=== PATIENT | male | born 1955 | race Two or more races ===

== ENCOUNTER 2020-02-29 21:31 | Emergency (ER) | payer MEDICAID ==
[~2020-02-29] VITALS: Ht 154.9 cm; Wt 99.8 kg
--- NOTE | 2020-02-29 21:56 | NUR ---
ED Nurse Note: PT is from home, per his son today he drank 3-4 pints of whiskey and has issues with his memeory. Per the pts son, he has had difficulty breathing for the last 3 days. His SPO2 is 88% on RA. Placed on 4L NC and SPO2 is now 98%. Son is at bedside as pt has slurred speach and is a poor historian. Labs sent, at bedside. Tele monitor on pt.
[2020-02-29 22:05] VITALS: BP 150/90
[2020-02-29 22:05] LABS: BASOPHILS % (AUTO) 0.5 % (0.0-2.0); EOSINOPHILS % (AUTO) 0.1 % (0.0-3.0); HEMATOCRIT 47.7 % (42.0-52.0); HEMOGLOBIN 16.8 G/DL (14.2-18.0); LYMPHOCYTES % (AUTO) 18.1 % (20.0-45.0); MEAN CORPUSCULAR VOLUME 82 FL (80-99); NEUTROPHILS % (AUTO) 75.3 % (45.0-75.0); PLATELET COUNT 235 K/UL (150-450); RED BLOOD COUNT 5.79 M/UL (4.70-6.10); RED CELL DISTRIBUTION WIDTH 14.5 % (11.6-14.8); WHITE BLOOD COUNT 7.9 K/UL (4.8-10.8)
--- NOTE | 2020-02-29 22:10 | NUR ---
ED Nurse Note: Pt is incontinent. Placed condom cath for comfort.
[2020-02-29 22:24] LABS: ANION GAP 15 mmol/L (5-15); BLOOD UREA NITROGEN 38 mg/dL (7-18); CALCIUM 8.3 MG/DL (8.5-10.1); CARBON DIOXIDE 24 MMOL/L (21-32); CHLORIDE 100 MMOL/L (98-107); POTASSIUM 4.9 MMOL/L (3.5-5.1); SODIUM 139 MMOL/L (136-145)
[2020-02-29 22:30] LABS: ALANINE AMINOTRANSFERASE 70 U/L (12-78); ALBUMIN 3.4 G/DL (3.4-5.0); ALBUMIN/GLOBULIN RATIO 0.7 (1.0-2.7); ALKALINE PHOSPHATASE 119 U/L (46-116); ASPARTATE AMINO TRANSFERASE 76 U/L (15-37); BILIRUBIN,TOTAL 0.7 MG/DL (0.2-1.0)
[2020-02-29 22:38] LABS: APPEARANCE,URINE CLEAR; BILIRUBIN, URINE NEGATIVE (NEGATIVE); GLUCOSE, URINE (UA) NEGATIVE (NEGATIVE); KETONES,URINE 1+ (NEGATIVE); LEUKOCYTE ESTERASE ,URINE NEGATIVE (NEGATIVE); NITRITE,URINE NEGATIVE (NEGATIVE); PH,URINE 5 (4.5-8.0); PROTEIN,URINE 1+ (NEGATIVE); UROBILINOGEN,URINE NORMAL MG/DL (0.0-1.0)
[2020-02-29 22:47] LABS: COLOR,URINE YELLOW
--- NOTE | 2020-02-29 22:47 | Diagnostic Imaging Report ---
EXAM: XR Chest, 1 View CLINICAL HISTORY: SOB TECHNIQUE: Frontal view of the chest. COMPARISON: No relevant prior studies available. FINDINGS: Lungs: Low lung volumes with bronchovascular crowding. Retrocardiac atelectasis without or with consolidation. Pleural space: Unremarkable. No pneumothorax. Heart: Prominent cardiomediastinal silhouette likely at least in part to portable technique and low lung volumes. Mediastinum: See above. Bones/joints: No acute abnormality Other findings: If there is continued concern, consider two-view radiographs or CT. IMPRESSION: 1. Low lung volumes with bronchovascular crowding. 2. Retrocardiac atelectasis without or with consolidation. 3. Prominent cardiomediastinal silhouette likely at least in part to portable technique and low lung volumes. 4. If there is continued concern, consider two-view radiographs or CT.
[2020-02-29] MEDS ORDERED: Thiamine 100mg tab ORAL ONE (23:00)
--- NOTE | 2020-02-29 23:32 | NUR ---
ED Nurse Note: PT is breathing even and unlabored. Eyes are closed. Pt needs reorientation and re-education on nessesity of mask and nasal canula. SPO2 drops to 75% on RA when pt removed.
[2020-03-01 00:09] VITALS: BP 140/82
--- NOTE | 2020-03-01 01:02 | Emergency Room Report ---
History of Present Illness General Chief Complaint: Dyspnea/Respdistress Source: Patient Present Illness HPI 64-year-old male here with alcohol intoxication. Patient was brought to the emergency department by his son because "he drank a lot and now he does not recognize me." Patient son says that the patient has been drinking continuously for the past 3 days. The patient does drink alcohol every day. No history of alcohol withdrawal according to the patient's son. Patient son says that the patient "will drink alcohol because he is short of breath." He says that the patient began drinking alcohol tonight because "he felt like it makes it easier for him to breathe." The patient is clearly intoxicated but is awake and arousable and answering questions appropriately, albeit slowly. He denies any complaints at this time. Allergies: Coded Allergies: No Known Allergies (Unverified , 02/29/20) COVID-19 Screening Contact w/high risk pt: No Experienced COVID-19 symptoms?: Yes COVID-19 Testing performed METROPOLITAN EDITOR: No Nursing Documentation-[facility] Past Medical History: No History, Except For Review of Systems All Other Systems: negative except mentioned in HPI Physical Exam Vital Signs Date Time Temp Pulse Resp B/P (MAP) Pulse Ox O2 Delivery O2 Flow Rate FiO2 02/29/20 21:32 98.2 118 21 143/92 (109) 88 Room Air 02/29/20 22:05 4.0 Sp02 EP Interpretation: reviewed, normal General Appearance: no apparent distress, alert, non-toxic Head: normocephalic, atraumatic Eyes: bilateral eye normal inspection, bilateral eye PERRL ENT: hearing grossly normal, normal pharynx, no angioedema, normal voice Neck: full range of motion, supple/symm/no masses Respiratory: chest non-tender, lungs clear, normal breath sounds, speaking full sentences Cardiovascular #1: regular rate, rhythm, no edema Cardiovascular #2: 2+ carotid (R), 2+ carotid (L), 2+ radial (R), 2+ radial (L), 2+ dorsalis pedis (R), 2+ dorsalis pedis (L) Gastrointestinal: normal bowel sounds, non tender, soft, non-distended, no guarding, no rebound Rectal: deferred Genitourinary: normal inspection, no CVA tenderness Musculoskeletal: back normal, normal range of motion, gait/station normal, non- tender Neurologic: alert, motor strength/tone normal, oriented x3, sensory intact, responsive, speech normal Psychiatric: judgement/insight normal, memory normal, mood/affect normal, no suicidal/homicidal ideation, other - Slurred speech, intoxicated, but answering questions appropriately Lymphatic: no adenopathy Medical Decision Making Diagnostic Impression: Primary Impression: Alcohol intoxication ER Course Laboratory Tests Test 02/29/20 21:53 02/29/20 22:03 02/29/20 22:30 White Blood Count 7.9 K/UL (4.8-10.8) Red Blood Count 5.79 M/UL (4.70-6.10) Hemoglobin 16.8 G/DL (14.2-18.0) Hematocrit 47.7 % (42.0-52.0) Mean Corpuscular Volume 82 FL (80-99) Mean Corpuscular Hemoglobin 29.1 PG (27.0-31.0) Mean Corpuscular Hemoglobin Concent 35.3 G/DL (32.0-36.0) Red Cell Distribution Width 14.5 % (11.6-14.8) Platelet Count 235 K/UL (150-450) Mean Platelet Volume 6.1 FL (6.5-10.1) L Neutrophils (%) (Auto) 75.3 % (45.0-75.0) H Lymphocytes (%) (Auto) 18.1 % (20.0-45.0) L Monocytes (%) (Auto) 6.0 % (1.0-10.0) Eosinophils (%) (Auto) 0.1 % (0.0-3.0) Basophils (%) (Auto) 0.5 % (0.0-2.0) Urine Color Yellow Urine Appearance Clear Urine pH 5 (4.5-8.0) Urine Specific [place] 1.020 (1.005-1.035) Urine Protein 1+ (NEGATIVE) H Urine Glucose (UA) Negative (NEGATIVE) Urine Ketones 1+ (NEGATIVE) H Urine Blood 5+ (NEGATIVE) H Urine Nitrite Negative (NEGATIVE) Urine Bilirubin Negative (NEGATIVE) Urine Urobilinogen Normal MG/DL (0.0-1.0) Urine Leukocyte Esterase Negative (NEGATIVE) Urine RBC 15-20 /HPF (0 - 0) H Urine WBC 0-2 /HPF (0 - 0) Urine Squamous Epithelial Cells None /LPF (NONE/OCC) Urine Bacteria Few /HPF (NONE) Sodium Level 139 MMOL/L (136-145) Potassium Level 4.9 MMOL/L (3.5-5.1) Chloride Level 100 MMOL/L (98-107) Carbon Dioxide Level 24 MMOL/L (21-32) Anion Gap 15 mmol/L (5-15) Blood Urea Nitrogen 38 mg/dL (7-18) H Creatinine 1.0 MG/DL (0.55-1.30) Estimated Glomerular Filtration Rate > 60 mL/min (>60) Glucose Level 130 MG/DL (74-106) H Calcium Level 8.3 MG/DL (8.5-10.1) L Total Bilirubin 0.7 MG/DL (0.2-1.0) Aspartate Amino Transferase (AST) 76 U/L (15-37) H Alanine Aminotransferase (ALT) 70 U/L (12-78) Alkaline Phosphatase 119 U/L (46-116) H Troponin I 0.035 ng/mL (0.000-0.056) Total Protein 8.6 G/DL (6.4-8.2) H Albumin 3.4 G/DL (3.4-5.0) Globulin 5.2 g/dL Albumin/Globulin Ratio 0.7 (1.0-2.7) L Salicylates Level 1.2 ug/mL (2.8-20) L Urine Opiates Screen Negative (NEGATIVE) Acetaminophen Level < 2 MCG/ML (10-30) L Urine Barbiturates Screen Negative (NEGATIVE) Phencyclidine (PCP) Screen Negative (NEGATIVE) Urine Amphetamines Screen Negative (NEGATIVE) Urine Benzodiazepines Screen Negative (NEGATIVE) Urine Cocaine Screen Negative (NEGATIVE) Urine Marijuana (THC) Screen Negative (NEGATIVE) Serum Alcohol 433 mg/dL POC Whole Blood Glucose 123 MG/DL (74-106) H Ammonia 29 umol/L (11-32) Chest x-ray:IMPRESSION: 1. Low lung volumes with bronchovascular crowding. 2. Retrocardiac atelectasis without or with consolidation. 3. Prominent cardiomediastinal silhouette likely at least in part to portable technique and low lung volumes. 4. If there is continued concern, consider two-view radiographs or CT. EKG: Rate 116 bpm, sinus rhythm, no ischemia, intervals WNL. No ectopy Rhythm strip: patient monitored for arrhythmias - no malignant dysrhythmias, runs of PVCs, nor pauses noted 64-year-old male here with alcohol intoxication. The patient was brought in by his son who said "he drinks when he is short of breath." Patient however is denying any shortness of breath whatsoever and is awake and alert with normal vital signs in the emergency department. Not requiring any oxygen supplementation and not showing any evidence whatsoever of increased respiratory effort. CBC, CMP, troponin, EKG, chest x-ray all unremarkable. Patient had a highly elevated alcohol level of 433. He was given thiamine and folate in the emergency department. Patient will be discharged when clinically sober. Last Vital Signs Date Time Temp Pulse Resp B/P (MAP) Pulse Ox O2 Delivery O2 Flow Rate FiO2 03/01/20 00:09 98.8 118 18 140/82 99 Nasal Cannula 4.0 [facility]errals: [facility] Patient Instructions: Alcohol Intoxication, Shortness of Breath Mani Pelaez M.D. Mar 01, 2020 01:02
--- NOTE | 2020-03-01 02:32 | NUR ---
ED Nurse Note: Pt has eyes closed, breathing is even and unlabored. Vitals signs stable as documented.
[2020-03-01 02:33] VITALS: BP 135/78
[2020-03-01 04:32] VITALS: BP 138/84
--- NOTE | 2020-03-01 04:33 | NUR ---
ED Nurse Note: Pt has eyes closed, breathing is even and unlabored. Vitals signs stable as documented.
--- NOTE | 2020-03-01 05:37 | NUR ---
ED Nurse Note: Pt failed the gait test when Rn tried to have him stand. no new orders. Pt is drinking water.
[2020-03-01 06:24] VITALS: BP 175/102
--- NOTE | 2020-03-01 06:25 | NUR ---
ED Nurse Note: Pt had bm incontinence episode. Changed bedding.
--- NOTE | 2020-03-01 06:54 | NUR ---
ED Nurse Note: Pt had second bm incontinence episode. Changed bedding.
[2020-03-01 07:11] VITALS: BP 165/80
--- NOTE | 2020-03-01 07:13 | NUR ---
ER DISCHARGE NOTE: Patient is cleared to be discharged per ERMD, pt is aox4, on room air, with stable vital signs. pt was given dc instructions, pt was able to verbalize understanding, pt id band and iv site removed without complications. pt is able to ambulate with steady gait. Family member drove him home with a private vehicle. pt took all belongings.
== END 2020-03-01 07:16 | disposition home or self-care (01) ==
LOC: EMR 21:53
DX: F10.129 Alcohol abuse with intoxication, unspecified (principal); Y90.8 Blood alcohol level of 240 mg/100 ml or more
CPT/HCPCS: 36415; 71045; 80053; 80307; 81003; 82140; 82962; 84484; 85025; 93005; 96360; G0480; G0481; J7030; Z7502; 99284

== ENCOUNTER 2020-04-28 22:46 | Inpatient (IN) | payer MEDICAID ==
[~2020-04-28] VITALS: Ht 172.7 cm; Wt 84.8 kg
--- NOTE | 2020-04-28 23:00 | NUR ---
ED Nurse Note: Patient came to the ED with complaints of upper abdominal pain 10/10 after eating pork this afternoon. Patient also reports nausea. Denies vomiting blood. Hx of alcoholism.
[2020-04-29] VITALS (7 sets, daily range): BP systolic 143–178; BP diastolic 72–111
--- NOTE | 2020-04-29 00:25 | NUR ---
Patient left the unit for US, stable.
--- NOTE | 2020-04-29 00:27 | Emergency Room Report ---
History of Present Illness General Chief Complaint: Abdominal Pain Source: Patient Present Illness HPI 64-year-old male with past medical history of alcohol dependence presents to the emergency department with chief complaint of right upper quadrant abdominal pain that began this afternoon after eating pork grinds. Denies history of any similar symptoms. Patient also endorses nonbloody nonbilious vomiting, however he denies any fever, chills, diarrhea, melena, hematochezia, dysuria, flank pain, rash, headache, chest pain or any other symptoms. The patient's symptoms were gradual onset, severity was moderate, duration since 1 day. Quality: Aching, radiating to the epigastric region Past medical history: Alcohol dependence Past surgical history: Denies Smoking: Denies Alcohol use: ++ Drug use: Denies Review of systems: CONST: No fevers or chills, No night sweats PULMONARY: No productive cough, No shortness of breath CARDIAC: No chest pain, No palpitations GI: ++ vomiting, No diarrhea , No melena_or_BRBPR : No dysuria, No hematuria, No discharge NEURO: No new_focal_weakness_or_numbness, No confusion, No vision changes 14 point Review of Systems is otherwise negative except per HPI Physical Exam: GENERAL: Awake_alert_ nontoxic, no acute distress Spo2 98% on RA -normal EYES: Extraocular muscles are intact. Conjunctivae clear. Lids without swelling ENT: External nose and ear normal_in_appearance. Oropharynx clear. Head_atraumatic, Moist_oral_mucosa NECK: No JVD. No meningismus. No thyromegaly. Supple. Trachea midline RESP: Normal respiratory effort. Symmetric rise. No stridor. Clear_to_auscultation_No_rales_No_wheezes CARDIAC: Regular rate and regular rhytm. No_significant pedal edema. ABDOMEN: Soft. Nondistended. Right upper quadrant tenderness to palpation. Positive Patten sign._No_rebound_or_guarding. MSK: Normal muscle tone, without rigidity. Extremities without asymmetric deformity or swelling. SKIN: Warm and dry. No visible cyanosis or pallor no petechiae NEUROLOGIC: Alert, oriented x3. Motor_and_sensation_grossly_intact. No truncal ataxia. Gait_normal Psych: Normal mood and affect, normal judgment and insight - COORDINATION OF CARE Case was discussed with: Patient , Patient's Physician Any labs and imaging that were ordered were interpreted as part of the medical decision making: Medical Decision Making/Plan: Differential diagnosis includes cholecystitis, choledocholithiasis, hepatitis, small bowel obstruction, volvulus, AAA, pancreatitis, atypical appendicitis, gastroparesis, gastritis, peptic ulcer disease, among others. Patient is well appearing with stable vital signs. Abdominal examination showed positive Patten sign and right upper quadrant tenderness to palpation without rebound Labs show transaminitis, likely obstructive biliary pattern. EKG shows normal sinus rhythm. LVH. No acute ischemia. Right upper quadrant ultrasound was performed and demonstrates cholelithiasis with gallbladder wall thickening of 5 mm with positive sonographic Patten sign, suspicious for acute cholecystitis. Furthermore, the common bile duct is mildly dilated requiring an MRCP to evaluate for choledocholithiasis. The patients symptoms are not consistent with ACS (acute coronary syndrome), symptoms are not exertional, EKG without obvious ischemic change. ED intervention included fluids, broad-spectrum antibiotic, and pain control. Patient has persistent pain in the right upper quadrant. Will admit for acute cholecystitis. The patient denies any bloody stool and has no pain out of proportion to exam, a nd no significant risk factors for mesenteric ischemia such as atrial fibrillation or severe PAD/PVD (peripheral arterial / vascular disease), thus definitive workup to rule out mesenteric ischemia was not pursued. Patient is afebrile, without any significant tenderness in the RUQ, and a negative Lincoln sign. The patients presentation does not appear to be consistent with acute cholecystitis and thus definitive imaging to rule it out was not pursued. The patient has no significant risk factors for AAA (abdominal aortic aneurysm) such as age over 50 with history of hypertension, connective tissue disorder, or 1st degree relative with AAA. the patient has normal dorsalis pedis pulses, no radiation of pain to the back, and no pulsatile mass felt on exam. The patients profile was overall low risk for AAA and definitive workup was not pursued. I spoke with Dr. Casarez, and reviewed the patients presentation, workup, results, and treatment. They will admit the patient for further care and evaluation, and assume care of the patient at this time. Allergies: Coded Allergies: No Known Allergies (Unverified , 02/29/20) COVID-19 Screening Contact w/high risk pt: No Experienced COVID-19 symptoms?: No COVID-19 Testing performed PORTFOLIO MANAGER: No Physical Exam Vital Signs Date Time Temp Pulse Resp B/P (MAP) Pulse Ox O2 Delivery O2 Flow Rate FiO2 04/28/20 23:21 98.2 79 22 185/98 (127) 98 Room Air Sp02 EP Interpretation: reviewed, normal Medical Decision Making Diagnostic Impression: Primary Impression: Abdominal pain Additional Impressions: Cholelithiasis Acute cholecystitis EKG Diagnostic Results Troponin ordered: No JUNI Valerioibbora Text 12-lead EKG (interpreted by me) Time: 2348 Indication: Rhythm analysis Tracing visualized and Interpreted by me. Rhythm: Normal sinus rhythm Rate: 69 bpm QTc: 443 Morphology: No_significant_ST_elevations_or_depressions, No STEMI Impression: Normal sinus rhythm, left ventricular hypertrophy, T wave inversion in lead V5 and V6 Rhythm Strip Diag. Results Rhythm Strip Time: 02:04 EP Interpretation: yes Rate: 89 Rhythm: NSR, no PVC's, no ectopy CT/MRI/US Diagnostic Results CT/MRI/US Diagnostic Results : Impression US Abdomen Complete FINDINGS: Liver: The liver measures 16.0 cm in craniocaudal dimension. No intrahepatic bile duct dilation. Gallbladder: Gallbladder wall thickness is 4.8 cm. Positive sonographic Patten sign. Gallstones are present. Common bile duct: The common bile duct measures 8.6 mm in diameter. No stones. No dilation. Pancreas: Unremarkable as visualized. Kidneys: The right kidney measures 14.0 x 6.2 x 4.0 cm. The left kidney measures 10.9 x 7.4 x 4.6 cm. 11 cm cyst arising from the right kidney. No follow-up imaging is necessary. No stones. No hydronephrosis. Spleen: Unremarkable. No splenomegaly. Aorta: Unremarkable. No aneurysm. Inferior vena cava: Unremarkable. IMPRESSION: 1. Cholelithiasis with gallbladder wall thickening of 4-5 mm with a positive sonographic Patten sign. This constellation of findings could be seen in the clinical setting of acute cholecystitis. 2. The common bile duct is mildly dilated. An MRCP could be performed to evaluate for obstructing CBD stone if clinically indicated. Dictated By: Fidelia Carty M.D Reevaluation Time: 02:04 Last Vital Signs Date Time Temp Pulse Resp B/P (MAP) Pulse Ox O2 Delivery O2 Flow Rate FiO2 04/28/20 23:21 98.2 79 22 185/98 (127) 98 Room Air Status: improved Disposition: ADMITTED INPATIENT Admit Decision Time: 02:04 Condition: Stable Referrals: NOT CHOSEN PEYTON/,REFERRING (PCP) Chata Reese D.O. Apr 29, 2020 00:26
[2020-04-29 00:33] LABS: EOSINOPHILS % (AUTO) 1.2 % (0.0-3.0); HEMATOCRIT 44.6 % (42.0-52.0); HEMOGLOBIN 14.7 G/DL (14.2-18.0); LYMPHOCYTES % (AUTO) 13.8 % (20.0-45.0); MEAN CORPUSCULAR VOLUME 88 FL (80-99); MONOCYTES % (AUTO) 7.7 % (1.0-10.0); NEUTROPHILS % (AUTO) 76.3 % (45.0-75.0); PLATELET COUNT 221 K/UL (150-450); RED BLOOD COUNT 5.06 M/UL (4.70-6.10); RED CELL DISTRIBUTION WIDTH 14.5 % (11.6-14.8)
[2020-04-29 00:34] LABS: APPEARANCE,URINE CLEAR; BILIRUBIN, URINE NEGATIVE (NEGATIVE); GLUCOSE, URINE (UA) NEGATIVE (NEGATIVE); KETONES,URINE 3+ (NEGATIVE); LEUKOCYTE ESTERASE ,URINE NEGATIVE (NEGATIVE); NITRITE,URINE NEGATIVE (NEGATIVE); PH,URINE 8 (4.5-8.0); PROTEIN,URINE NEGATIVE (NEGATIVE); UROBILINOGEN,URINE NORMAL MG/DL (0.0-1.0)
[2020-04-29 00:39] LABS: COLOR,URINE YELLOW
[2020-04-29 00:47] LABS: ANION GAP 9 mmol/L (5-15); BLOOD UREA NITROGEN 15 mg/dL (7-18); CALCIUM 9.4 MG/DL (8.5-10.1); CARBON DIOXIDE 29 MMOL/L (21-32); CHLORIDE 102 MMOL/L (98-107); CREATININE 0.8 MG/DL (0.55-1.30); POTASSIUM 3.6 MMOL/L (3.5-5.1); SODIUM 140 MMOL/L (136-145)
[2020-04-29 00:58] LABS: ALANINE AMINOTRANSFERASE 47 U/L (12-78); ALBUMIN 3.6 G/DL (3.4-5.0); ALBUMIN/GLOBULIN RATIO 0.8 (1.0-2.7); ALKALINE PHOSPHATASE 117 U/L (46-116); ASPARTATE AMINO TRANSFERASE 57 U/L (15-37); BILIRUBIN,TOTAL 2.6 MG/DL (0.2-1.0)
[2020-04-29 00:59] LABS: BILIRUBIN,DIRECT 1.3 MG/DL (0.0-0.3)
--- NOTE | 2020-04-29 01:00 | NUR ---
Patient return to unit from US.
--- NOTE | 2020-04-29 01:13 | Diagnostic Imaging Report ---
EXAM: US Abdomen Complete CLINICAL HISTORY: PAIN TECHNIQUE: Real-time ultrasound of the abdomen with image documentation. COMPARISON: No relevant prior studies available. FINDINGS: Liver: The liver measures 16.0 cm in craniocaudal dimension. No intrahepatic bile duct dilation. Gallbladder: Gallbladder wall thickness is 4.8 cm. Positive sonographic Patten sign. Gallstones are present. Common bile duct: The common bile duct measures 8.6 mm in diameter. No stones. No dilation. Pancreas: Unremarkable as visualized. Kidneys: The right kidney measures 14.0 x 6.2 x 4.0 cm. The left kidney measures 10.9 x 7.4 x 4.6 cm. 11 cm cyst arising from the right kidney. No follow-up imaging is necessary. No stones. No hydronephrosis. Spleen: Unremarkable. No splenomegaly. Aorta: Unremarkable. No aneurysm. Inferior vena cava: Unremarkable. IMPRESSION: 1. Cholelithiasis with gallbladder wall thickening of 4-5 mm with a positive sonographic Patten sign. This constellation of findings could be seen in the clinical setting of acute cholecystitis. 2. The common bile duct is mildly dilated. An MRCP could be performed to evaluate for obstructing CBD stone if clinically indicated.
[2020-04-29] MEDS ORDERED: Piperacillin/Tazobactam 3.375 GM in NS 110 ML IVPB ONE (01:15)
[2020-04-29] MEDS ORDERED: Morphine Sulfate 4mg/ml Inj (IV USE ONLY) ONE (02:54)
[2020-04-29] MEDS ORDERED: Morphine Sulfate 4mg/ml Inj (IV USE ONLY) IVP ONE ×3 (03:00→05:00)
--- NOTE | 2020-04-29 06:51 | NUR ---
Patient is resting in bed with eyes closed, calm and comfortable. BP 176/98, HR 84, 100% on room air.
--- NOTE | 2020-04-29 07:45 | NUR ---
ED Nurse Note: attempted to give report, was informed beds not ready and RN not at nurses station.
--- NOTE | 2020-04-29 08:16 | NUR ---
ED Nurse Note: attempted to call report again, on hold 12mins. attempted to call again and no answer.
--- NOTE | 2020-04-29 08:21 | NUR ---
ED Nurse Note: gave report to FRANCHESCA Higgins
--- NOTE | 2020-04-29 08:25 | NUR ---
NURSE NOTES Received patient in bed,patient awake,alert,oriented x4, no sign of distress, HL patent on right AC,Denies pain or discomfort at this time,repositioned patient for comfort and good circulation,admission routine care done, repositioned patient for comfort and good circulation,v/s taken and recorded kept clean dry and comfortable in bed,will notify PMD for admission orders,on fall precaution instructed patient to callfor assistance when in need moriah hendrickson
--- NOTE | 2020-04-29 10:28 | Consultation ---
History of Present Illness General Date patient seen: Apr 29, 2020 Reason for Hospitalization: Abdominal Pain Present Illness HPI 64-year-old male with past medical history of alcohol dependence presents to the emergency department with chief complaint of right upper quadrant abdominal pain that began afternoon prior to admission after eating pork grinds. Denies history of any similar symptoms. Patient also endorses nonbloody nonbilious vomiting, however he denies any fever, chills, diarrhea, melena, hematochezia, dysuria, flank pain, rash, headache, chest pain or any other symptoms. The patient's symptoms were gradual onset, severity was moderate, duration since 1 day. Leukocytosis abnormal labs acute cholecystitis admitted further care and management ultrasound noted surgery called to evaluate assist with care patient seen patient evaluate chart reviewed states 4 out of 10 right upper quad abdominal pain currently no nausea vomiting fever chills. Allergies: Coded Allergies: No Known Allergies (Unverified , 02/29/20) COVID-19 Screening Contact w/high risk pt: No Experienced COVID-19 symptoms?: No Patient History History Provided By: Patient Healthcare decision maker Resuscitation status Advanced Directive on File Past Medical/Surgical History Past Medical/Surgical History: (1) Alcohol intoxication (2) Cholelithiasis (3) Abdominal pain (4) Acute cholecystitis Review of Systems Review of Symptoms General ROS: no weight loss or fever Psychological ROS: no depression or mood changes, no memory loss Ophthalmic ROS: no visual changes or eye irritation ENT ROS: no nasal congestion, hearing loss, dizziness Allergy and Immunology ROS: no allergic symptoms or urticaria Hematological and Lymphatic ROS: no swollen glands, unusual bleeding or bruising Endocrine ROS: no polyuria, polydipsia, weight changes, temperature intolerance Respiratory ROS: no cough, shortness of breath, or wheezing Cardiovascular ROS: no chest pain or dyspnea on exertion Gastrointestinal ROS: + abdominal pain, bright red blood in stool. Musculoskeletal ROS: no myalgias or arthralgias Neurological ROS: no TIA or stroke symptoms Dermatological ROS: no new or changing skin lesions, rashes or pruritis Physical Exam Physical Exam General appearance: alert, cooperative, no distress, appears stated age Head: Normocephalic, without obvious abnormality, atraumatic Eyes: conjunctivae/corneas clear. PERRL, EOM's intact. Fundi benign Throat: Lips, mucosa, and tongue normal. Teeth and gums normal Neck: supple, symmetrical, trachea midline, no adenopathy, thyroid: not enlarged, symmetric, no tenderness/mass/nodules, no carotid bruit and no JVD Lungs: clear to auscultation bilaterally Heart: regular rate and rhythm, S1, S2 normal, no murmur, click, rub or gallop Abdomen: soft, RUQ-tender. Bowel sounds normal. No masses, no organomegaly Extremities: extremities normal, atraumatic, no cyanosis or edema Pulses: 2+ and symmetric Skin: Skin color, texture, turgor normal. No rashes or lesions Neurologic: Grossly normal Last 24 Hour Vital Signs Date Time Temp Pulse Resp B/P (MAP) Pulse Ox O2 Delivery O2 Flow Rate FiO2 04/29/20 09:42 Room Air 04/29/20 09:33 178/111 04/29/20 08:41 Room Air 04/29/20 08:30 98.1 85 18 178/111 (133) 95 04/29/20 06:50 98.2 16 176/98 100 Room Air 04/29/20 01:49 98.2 18 162/100 99 Room Air 04/29/20 01:04 79 22 Room Air 04/28/20 23:21 98.2 79 22 185/98 (127) 98 Room Air Intake and Output 04/28/20 04/29/20 18:59 06:59 Intake Total 100 ml Balance 100 ml Intake Oral 100 ml # Voids 2 Laboratory Tests Test 04/28/20 23:55 White Blood Count 7.0 K/UL (4.8-10.8) Red Blood Count 5.06 M/UL (4.70-6.10) Hemoglobin 14.7 G/DL (14.2-18.0) Hematocrit 44.6 % (42.0-52.0) Mean Corpuscular Volume 88 FL (80-99) Mean Corpuscular Hemoglobin 29.0 PG (27.0-31.0) Mean Corpuscular Hemoglobin Concent 32.9 G/DL (32.0-36.0) Red Cell Distribution Width 14.5 % (11.6-14.8) Platelet Count 221 K/UL (150-450) Mean Platelet Volume 6.3 FL (6.5-10.1) L Neutrophils (%) (Auto) 76.3 % (45.0-75.0) H Lymphocytes (%) (Auto) 13.8 % (20.0-45.0) L Monocytes (%) (Auto) 7.7 % (1.0-10.0) Eosinophils (%) (Auto) 1.2 % (0.0-3.0) Basophils (%) (Auto) 1.0 % (0.0-2.0) Urine Color Yellow Urine Appearance Clear Urine pH 8 (4.5-8.0) Urine Specific [place] 1.015 (1.005-1.035) Urine Protein Negative (NEGATIVE) Urine Glucose (UA) Negative (NEGATIVE) Urine Ketones 3+ (NEGATIVE) H Urine Blood Negative (NEGATIVE) Urine Nitrite Negative (NEGATIVE) Urine Bilirubin Negative (NEGATIVE) Urine Urobilinogen Normal MG/DL (0.0-1.0) Urine Leukocyte Esterase Negative (NEGATIVE) Sodium Level 140 MMOL/L (136-145) Potassium Level 3.6 MMOL/L (3.5-5.1) Chloride Level 102 MMOL/L (98-107) Carbon Dioxide Level 29 MMOL/L (21-32) Anion Gap 9 mmol/L (5-15) Blood Urea Nitrogen 15 mg/dL (7-18) Creatinine 0.8 MG/DL (0.55-1.30) Estimat Glomerular Filtration Rate > 60 mL/min (>60) Glucose Level 129 MG/DL (74-106) H Calcium Level 9.4 MG/DL (8.5-10.1) Total Bilirubin 2.6 MG/DL (0.2-1.0) H Direct Bilirubin 1.3 MG/DL (0.0-0.3) H Aspartate Amino Transf (AST/SGOT) 57 U/L (15-37) H Alanine Aminotransferase (ALT/SGPT) 47 U/L (12-78) Alkaline Phosphatase 117 U/L (46-116) H Total Protein 8.0 G/DL (6.4-8.2) Albumin 3.6 G/DL (3.4-5.0) Globulin 4.4 g/dL Albumin/Globulin Ratio 0.8 (1.0-2.7) L Lipase 176 U/L (73-393) Height (Feet): 5 Height (Inches): 8.00 Weight (Pounds): 187 Medications Current Medications Medications (Trade) Dose Ordered Sig/Nishant Route PRN Reason Start Time Stop Time Status Last Admin Dose Admin Clonidine HCl (Catapres Tab) 0.1 mg Q4H PRN ORAL SBP>160mmHg 04/29/20 09:30 07/28/20 09:29 04/29/20 09:33 Assessment/Plan Problem List: (1) Cholelithiasis ICD Codes: K80.20 - Calculus of gallbladder without cholecystitis without obstruction SNOMED: 593749499 (2) Abdominal pain ICD Codes: R10.9 - Unspecified abdominal pain SNOMED: 47551477 (3) Acute cholecystitis Assessment & Plan: 64-year-old male with acute cholecystitis. Afebrile hemodynamic stable labs noted leukocytosis elevated direct and indirect bilirubin. Potential choledocholithiasis. Ultrasound noted. N.p.o. iv fluids MRCP eval for cbd stone iv abx trend labs gi eval for ercp may need cholecystectomy will monitor clinically and follow with recs as results available will follow with recs thank you Liver: The liver measures 16.0 cm in craniocaudal dimension. No intrahepatic bile duct dilation. Gallbladder: Gallbladder wall thickness is 4.8 cm. Positive sonographic Patten sign. Gallstones are present. Common bile duct: The common bile duct measures 8.6 mm in diameter. No stones. No dilation. Pancreas: Unremarkable as visualized. Kidneys: The right kidney measures 14.0 x 6.2 x 4.0 cm. The left kidney measures 10.9 x 7.4 x 4.6 cm. 11 cm cyst arising from the right kidney. No follow-up imaging is necessary. No stones. No hydronephrosis. Spleen: Unremarkable. No splenomegaly. Aorta: Unremarkable. No aneurysm. Inferior vena cava: Unremarkable. IMPRESSION: 1. Cholelithiasis with gallbladder wall thickening of 4-5 mm with a positive sonographic Patten sign. This constellation of findings could be seen in the clinical setting of acute cholecystitis. 2. The common bile duct is mildly dilated. An MRCP could be performed to evaluate for obstructing CBD stone if clinically indicated. ICD Codes: K81.0 - Acute cholecystitis SNOMED: 61498975 (4) Alcohol intoxication ICD Codes: F10.929 - Alcohol use, unspecified with intoxication, unspecified SNOMED: 46048121 Venkatesh Hall Apr 29, 2020 10:27
[2020-04-29] MEDS ORDERED: Morphine Sulfate 2mg/ml Inj(IV/IM USE ONLY) IVP PRN (10:30)
[2020-04-29] MEDS ORDERED: LORazepam 1mg tab ORAL PRN (10:30)
[2020-04-29] MEDS ORDERED: Mylanta II UD 30ml ORAL PRN (10:30)
--- NOTE | 2020-04-29 10:48 | History & Physical ---
History of Present Illness General Reason for Hospitalization: Abdominal Pain Present Illness HPI 64-year-old male with past medical history of alcohol dependence presents to the emergency department with chief complaint of right upper quadrant abdominal pain that began afternoon prior to admission after eating pork grinds. Denies history of any similar symptoms. Patient also endorses nonbloody nonbilious vomiting, however he denies any fever, chills, diarrhea, melena, hematochezia, dysuria, flank pain, rash, headache, chest pain or any other symptoms. The patient's symptoms were gradual onset, severity was moderate, duration since 1 day. Leukocytosis abnormal labs acute cholecystitis admitted further care and management Allergies: Coded Allergies: No Known Allergies (Unverified , 02/29/20) COVID-19 Screening Contact w/high risk pt: No Experienced COVID-19 symptoms?: No Patient History Healthcare decision maker Resuscitation status Advanced Directive on File Review of Systems Review of Symptoms General ROS: no weight loss or fever Psychological ROS: no depression or mood changes, no memory loss Ophthalmic ROS: no visual changes or eye irritation ENT ROS: no nasal congestion, hearing loss, dizziness Allergy and Immunology ROS: no allergic symptoms or urticaria Hematological and Lymphatic ROS: no swollen glands, unusual bleeding or bruising Endocrine ROS: no polyuria, polydipsia, weight changes, temperature intolerance Respiratory ROS: no cough, shortness of breath, or wheezing Cardiovascular ROS: no chest pain or dyspnea on exertion Gastrointestinal ROS: + abd pain Musculoskeletal ROS: no myalgias or arthralgias Neurological ROS: no TIA or stroke symptoms Dermatological ROS: no new or changing skin lesions, rashes or pruritis Physical Exam Physical Exam General appearance: alert, cooperative, no distress, appears stated age Head: Normocephalic, without obvious abnormality, atraumatic Eyes: conjunctivae/corneas clear. PERRL, EOM's intact. Fundi benign Throat: Lips, mucosa, and tongue normal. Teeth and gums normal Neck: supple, symmetrical, trachea midline, no adenopathy, thyroid: not enlarged, symmetric, no tenderness/mass/nodules, no carotid bruit and no JVD Lungs: clear to auscultation bilaterally Heart: regular rate and rhythm, S1, S2 normal, no murmur, click, rub or gallop Abdomen: soft, non-tender. Bowel sounds normal. No masses, no organomegaly Extremities: extremities normal, atraumatic, no cyanosis or edema Pulses: 2+ and symmetric Skin: Skin color, texture, turgor normal. No rashes or lesions Neurologic: Grossly normal Last 24 Hour Vital Signs Date Time Temp Pulse Resp B/P (MAP) Pulse Ox O2 Delivery O2 Flow Rate FiO2 04/29/20 09:42 Room Air 04/29/20 09:33 178/111 04/29/20 08:41 Room Air 04/29/20 08:30 98.1 85 18 178/111 (133) 95 04/29/20 06:50 98.2 16 176/98 100 Room Air 04/29/20 01:49 98.2 18 162/100 99 Room Air 04/29/20 01:04 79 22 Room Air 04/28/20 23:21 98.2 79 22 185/98 (127) 98 Room Air Intake and Output 04/28/20 04/29/20 19:00 07:00 Intake Total 100 ml Balance 100 ml Intake Oral 100 ml # Voids 2 Laboratory Tests Test 04/28/20 23:55 White Blood Count 7.0 K/UL (4.8-10.8) Red Blood Count 5.06 M/UL (4.70-6.10) Hemoglobin 14.7 G/DL (14.2-18.0) Hematocrit 44.6 % (42.0-52.0) Mean Corpuscular Volume 88 FL (80-99) Mean Corpuscular Hemoglobin 29.0 PG (27.0-31.0) Mean Corpuscular Hemoglobin Concent 32.9 G/DL (32.0-36.0) Red Cell Distribution Width 14.5 % (11.6-14.8) Platelet Count 221 K/UL (150-450) Mean Platelet Volume 6.3 FL (6.5-10.1) L Neutrophils (%) (Auto) 76.3 % (45.0-75.0) H Lymphocytes (%) (Auto) 13.8 % (20.0-45.0) L Monocytes (%) (Auto) 7.7 % (1.0-10.0) Eosinophils (%) (Auto) 1.2 % (0.0-3.0) Basophils (%) (Auto) 1.0 % (0.0-2.0) Urine Color Yellow Urine Appearance Clear Urine pH 8 (4.5-8.0) Urine Specific [place] 1.015 (1.005-1.035) Urine Protein Negative (NEGATIVE) Urine Glucose (UA) Negative (NEGATIVE) Urine Ketones 3+ (NEGATIVE) H Urine Blood Negative (NEGATIVE) Urine Nitrite Negative (NEGATIVE) Urine Bilirubin Negative (NEGATIVE) Urine Urobilinogen Normal MG/DL (0.0-1.0) Urine Leukocyte Esterase Negative (NEGATIVE) Sodium Level 140 MMOL/L (136-145) Potassium Level 3.6 MMOL/L (3.5-5.1) Chloride Level 102 MMOL/L (98-107) Carbon Dioxide Level 29 MMOL/L (21-32) Anion Gap 9 mmol/L (5-15) Blood Urea Nitrogen 15 mg/dL (7-18) Creatinine 0.8 MG/DL (0.55-1.30) Estimat Glomerular Filtration Rate > 60 mL/min (>60) Glucose Level 129 MG/DL (74-106) H Calcium Level 9.4 MG/DL (8.5-10.1) Total Bilirubin 2.6 MG/DL (0.2-1.0) H Direct Bilirubin 1.3 MG/DL (0.0-0.3) H Aspartate Amino Transf (AST/SGOT) 57 U/L (15-37) H Alanine Aminotransferase (ALT/SGPT) 47 U/L (12-78) Alkaline Phosphatase 117 U/L (46-116) H Total Protein 8.0 G/DL (6.4-8.2) Albumin 3.6 G/DL (3.4-5.0) Globulin 4.4 g/dL Albumin/Globulin Ratio 0.8 (1.0-2.7) L Lipase 176 U/L (73-393) Height (Feet): 5 Height (Inches): 8.00 Weight (Pounds): 187 Medications Current Medications Medications (Trade) Dose Ordered Sig/Nishant Route PRN Reason Start Time Stop Time Status Last Admin Dose Admin Acetaminophen (Tylenol) 650 mg Q4H PRN ORAL Temp >100.5 04/29/20 10:30 05/29/20 10:29 Al Hydroxide/Mg Hydroxide (Mylanta II) 30 ml Q6H PRN ORAL dyspepsia 04/29/20 10:30 05/29/20 10:29 Clonidine HCl (Catapres Tab) 0.1 mg Q4H PRN ORAL SBP>160mmHg 04/29/20 09:30 07/28/20 09:29 04/29/20 09:33 Dextrose (Dextrose 50%) 25 ml Q30M PRN IV Hypoglycemia 04/29/20 10:30 07/28/20 10:29 Dextrose (Dextrose 50%) 50 ml Q30M PRN IV Hypoglycemia 04/29/20 10:30 07/28/20 10:29 Dextrose/ Electrolytes 1,000 ml @ 75 mls/hr [id number] IV 04/29/20 11:30 05/29/20 11:29 Diphenhydramine HCl (Benadryl) 25 mg Q6H PRN ORAL Itching/Pruritis 04/29/20 10:30 05/29/20 10:29 Famotidine (Pepcid I.v.) 20 mg Q12HR IVP 04/29/20 21:00 05/29/20 20:59 Lorazepam (Ativan) 1 mg Q4H PRN ORAL For Anxiety 04/29/20 10:30 05/06/20 10:29 Morphine Sulfate (Morphine Sulfate) 2 mg Q3H PRN IVP Moderate Pain (Pain Scale 4-6) 04/29/20 10:30 05/06/20 10:29 Multivitamins (Multivitamins) 1 tab DAILY ORAL 04/30/20 09:00 05/30/20 08:59 Ondansetron HCl (Zofran) 4 mg Q6H PRN IVP Nausea & Vomiting 04/29/20 10:30 05/29/20 10:29 Piperacillin Sod/ Tazobactam Sod 3.375 gm/Sodium Chloride 110 ml @ 27.5 mls/hr EVERY 8 HOURS IVPB 04/29/20 14:00 05/04/20 13:59 Temazepam (Restoril) 15 mg HSPRN PRN ORAL Insomnia 04/29/20 21:00 05/06/20 20:59 Assessment/Plan Diagnosis [place] I: #acute abd pain #nausea, emesis #acute viridiana? - admit inpatient - IV abx- vanco - zosyn - [facility] - IVF - Gi eval - general surger - antiemetics - pain control [facility] Hospital declaration INPATIENT level of care is warranted for this patient because patient is a 89 year old with who presents with suspicion of . I have a high level of concern because . Patient is at high risk for . Plan of care/treatment include . Patient care is expected to be greater than 2 midnights. OBSERVATION level of care is warranted for this patient. Patient is a 89 year old with who presents with . Patient will be admitted for 1 midnight, but if additional night(s) is/are necessary, patient will be converted to inpatient status for the entire hospitalization Disposition: Once the patient is stable to leave the hospital, I anticipate the patient will likely be discharged to the following environment: Estimated discharge date: I spent 70 minutes on this patient's case, and minutes was dedicated to counseling and/or care coordination. MIPS (Merit-based Incentive Payment System) Applicable CPT: 17055, 48894 CHECK ALL THAT ARE MET: Measure #5 (CHF): All ages. Prescribe MELE/ARB upon discharge for patients with left ventricular systolic dysfunction. If not, the reason is clearly documented in the medical chart. Measure #8 (CHF): All ages. Prescribe a beta reece upon discharge for patients with left ventricular systolic dysfunction. If not, the reason is clearly documented in the medical chart. Measure #47 Advance care plan or surrogate decision maker documented in the medical record. Measure #130 The provider has documented, updated, or reviewed the patients current medication list and has documented it in the patients note. Measure #374 (All): Send report to referring provider. Measure #407(Sepsis due to MSSA bacteremia): Age 18+ Patient treated with a beta-lactam antibiotic (Nafcillin, Oxacillin or Cefazolin) as definitive therapy. MEDICAL COMPLEXITY High complexity medical decision making (need 2/3 categories) Problem - need 4 points Acute/new problem with new plan for workup (4 points, 1 max) Acute/new problem without additional workup (3 points, 1 max) Unstable chronic problem actively being managed (2 point each, 2 max) Stable chronic problem actively being managed (1 point each, 2 max) Self-limited/transient process (constipation, muscle ache, etc) (1 point each, 2 max) Data - need 4 points Reviewed labs/imaging studies (1 points, 2 max) Independent review of imaging (EKG, xrays, etc) (2 points, 2 max) Discussed case with consult/other MD/RN (2 points, 2 max) High Risk - qualify if have one of the following: Severe exacerbation of acute problem, acute mental status change, IV narcotics, monitoring drug levels (vancomycin, INR, tacrolimus etc) Kellee Toledo M.D. Apr 29, 2020 10:48
[2020-04-29] MEDS: D5 1/2NS w/KCl 20mEq 1,000 ML IV SCH (11:21)
[2020-04-29] MEDS: Piperacillin/Tazobactam 3.375 GM in NS 110 ML IVPB SCH ×2 (13:11→22:07)
--- NOTE | 2020-04-29 13:14 | NUR ---
CASE MANAGEMENT:REVIEW 64 YR OLD MALE WALKED INTO ER CC: ABD PAIN AFTER EATING PORK. VOMITING SI: ACUTE CHOLECYSTITIS. CHOLELITHIASIS 98.3 79 22 185/98 98% ON RA GLUCOSE+129 TBILI+2.6 DBILI+1.3 IS: IV ZOFRAN 1L NS BOLUS X2 IV MORPHINE IV ZOSYN ABD US MRI ABD : TO MED/SURG UNIT DCP: FROM HOME
--- NOTE | 2020-04-29 15:00 | Diagnostic Imaging Report ---
Indication: Abdominal pain, gallstones seen on recent sonography Technique: Coronal and axial single shot fast spin-echo breath-hold, axial T2 FRFSE, 2-D thick slab MRCP, AXIAL 2-D FIESTA fat saturated, axial 3-D dual echo breath-hold, water weighted axial LAVA FLEX, revealed 3-D MRCP images were obtained of the abdomen. MIP reconstructions were generated of the bile ducts on an integrated workstation Comparison: No comparison MRI. Reference made to sonogram of earlier the same day Findings: There is considerable image degradation due to respiratory motion artifact. A few small filling defects are seen in the gallbladder on a few sequences. The common bile duct and common hepatic duct are dilated, measuring up to 11 mm in diameter. However, no obstructing stone or obstructing mass is demonstrated. The patella appears to protrude into the duodenal lumen on the axial T2 fat saturated images. There is very mild edema of the gallbladder wall which is somewhat focal around the fundus. There is mild central intrahepatic biliary ductal dilatation. No intrahepatic ductal filling defects are demonstrated. The pancreatic duct is normal in caliber. There is edema surrounding the pancreatic head and body and extending into the bryce hepatis as well as surrounding the second portion of the duodenum. The liver, spleen, adrenals, left kidney are unremarkable. A large cyst arises from the upper pole of the right kidney. No pelvic mass or adenopathy. Impression: Cholelithiasis. Minimal if any gallbladder wall thickening Dilated extrahepatic bile ducts, 11 mm in diameter. No evidence of choledocholithiasis or definite downstream obstructive lesion demonstrated. Edema surrounding the pancreatic head and body. This is suspicious for acute pancreatitis. Unremarkable pancreatic duct Incidental finding of large right renal cyst, also described on prior sonogram
--- NOTE | 2020-04-29 19:30 | NUR ---
NURSE HAND-OFF: Important Events on Shift:[MRCP done] Patient Status: [on going] Diet: [NPO] Pending Orders: [LABS in am] Pending Results/Labs:[none] Pending MD notification:[none] Latest Vital Signs: Temperature 99.2 , Pulse 89 , B/P 149 /72 , Respiratory Rate 18 , O2 SAT 97 , Room Air, O2 Flow Rate . Vital Sign Comment: [stable] Latest Lynn Fall Score: 25 Fall Risk: Medium Risk Safety Measures: Call light Within Reach, Bed Alarm Zone 2, Side Rails Side Rails x2, Bed position Low and Locked. Fall Precautions: Patient Fall Education Report given to [TAMELA Cruz].
--- NOTE | 2020-04-29 20:00 | NUR ---
NURSE NOTES: RECEIVED PATIENT LYING IN BED, AWAKE, ALERT/ORIENTED X4, MONGOLIAN SPEAKING, HEAD OF BED ELEVATED, NO SIGNS AND SYMPTOMS OF ACUTE CARDIO RESPIRATORY DISTRESS/SHORTNESS OF BREATH, DENIES CHEST PAIN, NO EDEMA NOTED. IV INTACT/PATENT, TOLERATING IV FLUIDS, NO REDNESS/SWELLING NOTED TO RIGHT AC/GAUGE 20. ABDOMEN SOFT/NON TENDER/AUDIBLE BOWEL SOUNDS IN ALL QUADRANTS, PATIENT NPO/ACUTE CHOLECYSTITIS, DENIES ABDOMINAL PAIN, ASSISTED TO BATHROOM, NOTED WITH UNSTEADY GAIT, RETURNED TO BED SAFELY, SIDE RAILS UP X3/BED IN LOWEST POSITION FOR SAFETY, ENCOURAGED PATIENT TO CONTINUE TO CALL FOR ASSISTANCE, VERBALIZED UNDERSTANDING. CONTINUE WITH CURRENT PLAN OF CARE. NAD.
[2020-04-30] VITALS: BP 154/95
[2020-04-30] MEDS: D5 1/2NS w/KCl 20mEq 1,000 ML IV SCH ×2 (00:50→06:47)
[2020-04-30 04:00] VITALS: BP 150/87
[2020-04-30 07:10] LABS: BASOPHILS % (AUTO) 0.5 % (0.0-2.0); EOSINOPHILS % (AUTO) 0.9 % (0.0-3.0); HEMATOCRIT 43.9 % (42.0-52.0); HEMOGLOBIN 14.6 G/DL (14.2-18.0); LYMPHOCYTES % (AUTO) 16.2 % (20.0-45.0); MEAN CORPUSCULAR VOLUME 88 FL (80-99); MONOCYTES % (AUTO) 14.1 % (1.0-10.0); NEUTROPHILS % (AUTO) 68.3 % (45.0-75.0); PLATELET COUNT 230 K/UL (150-450); RED BLOOD COUNT 4.99 M/UL (4.70-6.10); WHITE BLOOD COUNT 7.3 K/UL (4.8-10.8)
[2020-04-30 07:22] LABS: INR 1.1 (0.9-1.1)
[2020-04-30] MEDS: Piperacillin/Tazobactam 3.375 GM in NS 110 ML IVPB SCH ×3 (07:22→21:08)
--- NOTE | 2020-04-30 07:35 | NUR ---
NURSE NOTES: REPORT GIVEN BY DAVID. RECEIVED PATIENT LYING IN BED, AWAKE, ALERT/ORIENTED X4, PORTUGUESE SPEAKING. ABLE TO UNDERSTAND SIMPLE HONDURAN. HEAD OF BED ELEVATED, NO SIGNS AND SYMPTOMS OF ACUTE CARDIO-RESPIRATORY DISTRESS/SHORTNESS OF BREATH, DENIES CHEST PAIN, NO EDEMA NOTED. PIV INTACT/PATENT, IVF INFUSING WELL. RIGHT AC/GAUGE 20 PATENT AND INTACT. ABDOMEN SOFT/NON TENDER/AUDIBLE BOWEL SOUNDS IN ALL QUADRANTS. LAST BM WAS 04/29. KEPT PATIENT NPO XCEPT MEDS/ ICE CHIPS. DENIES ABDOMINAL PAIN, ASSISTED TO BATHROOM, NOTED WITH UNSTEADY GAIT, BRP WITH ASSISTANCE, SIDERAILS UP X3/BED IN LOWEST POSITION FOR SAFETY, ENCOURAGED PATIENT TO CONTINUE TO CALL FOR ASSISTANCE, VERBALIZED UNDERSTANDING. CONTINUE WITH CURRENT PLAN OF CARE.
[2020-04-30 07:39] LABS: ALANINE AMINOTRANSFERASE 142 U/L (12-78); ALBUMIN 2.7 G/DL (3.4-5.0); ALBUMIN/GLOBULIN RATIO 0.7 (1.0-2.7); ALKALINE PHOSPHATASE 177 U/L (46-116); ANION GAP 6 mmol/L (5-15); ASPARTATE AMINO TRANSFERASE 123 U/L (15-37); BILIRUBIN,TOTAL 6.7 MG/DL (0.2-1.0); BLOOD UREA NITROGEN 9 mg/dL (7-18); CALCIUM 8.7 MG/DL (8.5-10.1); CARBON DIOXIDE 28 MMOL/L (21-32); CHLORIDE 101 MMOL/L (98-107); CHOLESTEROL 147 MG/DL (< 200); CREATININE 0.7 MG/DL (0.55-1.30); HDL CHOLESTEROL 64 MG/DL (40-60); POTASSIUM 3.3 MMOL/L (3.5-5.1); SODIUM 135 MMOL/L (136-145); TRIGLYCERIDES 68 MG/DL (30-150)
[2020-04-30 07:44] LABS: BILIRUBIN,DIRECT 4.2 MG/DL (0.0-0.3)
--- NOTE | 2020-04-30 07:51 | NUR ---
NURSE HAND-OFF: Important Events on Shift:[UNEVENTFUL NIGHT, RESTED WELL] Patient Status: [STABLE] Diet: [NPO EXCEPT ICE CHIPS AND MEDS] Pending Orders: [AM LABS] Pending Results/Labs:[BLOOD CULTURE - GRAM POSITIVE COCCI IN CLUSTERS, ENDORSED TO AM NURSE TO FOLLOW UP] Pending MD notification:[] Latest Vital Signs: Temperature 98.7 , Pulse 83 , B/P 150 /87 , Respiratory Rate 20 , O2 SAT 95 , Room Air, O2 Flow Rate . Vital Sign Comment: [HYPERTENSIVE, ASYMPTOMATIC] Latest Lynn Fall Score: 25 Fall Risk: Medium Risk Safety Measures: Call light Within Reach, Bed Alarm Zone 2, Side Rails Side Rails x2, Bed position Low and Locked. Fall Precautions: Yellow Socks Door Sign Patient Fall Education Report given to [TAMELA JULES].
[2020-04-30 08:00] VITALS: BP 116/72
--- NOTE | 2020-04-30 08:00 | NUR ---
NURSE NOTES: called and spoke with Dr Toledo re: blood cx result. Obtained new order and carried out. Will cont to monitor.
[2020-04-30 08:40] LABS: AMYLASE 556 U/L (25-115)
--- NOTE | 2020-04-30 09:18 | NUR ---
NURSE NOTES: called and left voicemessage regarding abnormal labs. awaiting for a callback. will cont to monitor. Addendum: 04/30/20 at 1424 by SMITA CAPUTO LVN NURSE NOTES: PMD @ bedside and new order entered by him. will cont to monitor.
[2020-04-30] MEDS ORDERED: Vancomycin 1.25gm Premix q24h IVPB SCH (10:00)
--- NOTE | 2020-04-30 11:33 | Surgery Progress Note ---
Surgery Progress Note Subjective Symptoms: improved, voiding well, passing flatus, pain decreased Objective Last 24 Hour Vital Signs Date Time Temp Pulse Resp B/P (MAP) Pulse Ox O2 Delivery O2 Flow Rate FiO2 04/30/20 09:00 Room Air 04/30/20 08:00 98.6 60 20 116/72 (87) 97 04/30/20 04:00 98.7 83 20 150/87 (108) 95 04/30/20 00:00 99.2 81 18 154/95 (114) 97 04/29/20 21:00 Room Air 04/29/20 20:00 98.0 98 18 143/90 (107) 98 04/29/20 16:00 99.2 89 18 149/72 (97) 97 04/29/20 13:00 152/98 (116) 04/29/20 12:05 98.4 88 18 167/105 (125) 96 I&O Intake and Output 04/29/20 04/30/20 19:00 07:00 Intake Total 375.0 ml 560.0 ml Output Total 1250 ml 600 ml Balance -875.0 ml -40.0 ml IV Total 375.0 ml 560.0 ml Output Urine Total 1250 ml 600 ml # Voids 1 1 Cardiovascular: RSR Respiratory: clear Abdomen: soft, non-tender, present bowel sounds, non-distended Extremities: no edema, no tenderness, no cyanosis Laboratory Tests Test 04/30/20 04:55 White Blood Count 7.3 K/UL (4.8-10.8) Red Blood Count 4.99 M/UL (4.70-6.10) Hemoglobin 14.6 G/DL (14.2-18.0) Hematocrit 43.9 % (42.0-52.0) Mean Corpuscular Volume 88 FL (80-99) Mean Corpuscular Hemoglobin 29.3 PG (27.0-31.0) Mean Corpuscular Hemoglobin Concent 33.3 G/DL (32.0-36.0) Red Cell Distribution Width 14.0 % (11.6-14.8) Platelet Count 230 K/UL (150-450) Mean Platelet Volume 6.6 FL (6.5-10.1) Neutrophils (%) (Auto) 68.3 % (45.0-75.0) Lymphocytes (%) (Auto) 16.2 % (20.0-45.0) L Monocytes (%) (Auto) 14.1 % (1.0-10.0) H Eosinophils (%) (Auto) 0.9 % (0.0-3.0) Basophils (%) (Auto) 0.5 % (0.0-2.0) Prothrombin Time 11.7 SEC (9.30-11.50) H Prothromb Time International Ratio 1.1 (0.9-1.1) Activated Partial Thromboplast Time 27 SEC (23-33) Sodium Level 135 MMOL/L (136-145) L Potassium Level 3.3 MMOL/L (3.5-5.1) L Chloride Level 101 MMOL/L (98-107) Carbon Dioxide Level 28 MMOL/L (21-32) Anion Gap 6 mmol/L (5-15) Blood Urea Nitrogen 9 mg/dL (7-18) Creatinine 0.7 MG/DL (0.55-1.30) Estimat Glomerular Filtration Rate > 60 mL/min (>60) Glucose Level 92 MG/DL (74-106) Hemoglobin A1c 5.8 % (4.3-6.0) Calcium Level 8.7 MG/DL (8.5-10.1) Total Bilirubin 6.7 MG/DL (0.2-1.0) H Direct Bilirubin 4.2 MG/DL (0.0-0.3) H Aspartate Amino Transf (AST/SGOT) 123 U/L (15-37) H Alanine Aminotransferase (ALT/SGPT) 142 U/L (12-78) H Alkaline Phosphatase 177 U/L (46-116) H Pro-B-Type Natriuretic Peptide 1334 pg/mL (0-125) H Total Protein 6.7 G/DL (6.4-8.2) Albumin 2.7 G/DL (3.4-5.0) L Globulin 4.0 g/dL Albumin/Globulin Ratio 0.7 (1.0-2.7) L Triglycerides Level 68 MG/DL (30-150) Cholesterol Level 147 MG/DL (< 200) LDL Cholesterol 75 mg/dL (<100) HDL Cholesterol 64 MG/DL (40-60) H Cholesterol/HDL Ratio 2.3 (3.3-4.4) L Amylase Level 556 U/L (25-115) *H Lipase > 2000 U/L (73-393) H Thyroid Stimulating Hormone (TSH) 0.793 uiU/mL (0.358-3.740) Plan Problems: (1) Cholelithiasis (2) Abdominal pain (3) Acute cholecystitis Assessment & Plan: 64-year-old male with acute cholecystitis. Afebrile hemodynamic stable labs noted leukocytosis elevated direct and indirect bilirubin. Potential choledocholithiasis. Ultrasound noted. N.p.o. iv fluids MRCP eval for cbd stone iv abx trend labs gi eval for ercp may need cholecystectomy will monitor clinically and follow with recs as results available will follow with recs thank you abd pain near resolved no n/v labs trending cont current care Liver: The liver measures 16.0 cm in craniocaudal dimension. No intrahepatic bile duct dilation. Gallbladder: Gallbladder wall thickness is 4.8 cm. Positive sonographic Patten sign. Gallstones are present. Common bile duct: The common bile duct measures 8.6 mm in diameter. No stones. No dilation. Pancreas: Unremarkable as visualized. Kidneys: The right kidney measures 14.0 x 6.2 x 4.0 cm. The left kidney measures 10.9 x 7.4 x 4.6 cm. 11 cm cyst arising from the right kidney. No follow-up imaging is necessary. No stones. No hydronephrosis. Spleen: Unremarkable. No splenomegaly. Aorta: Unremarkable. No aneurysm. Inferior vena cava: Unremarkable. IMPRESSION: 1. Cholelithiasis with gallbladder wall thickening of 4-5 mm with a positive sonographic Patten sign. This constellation of findings could be seen in the clinical setting of acute cholecystitis. 2. The common bile duct is mildly dilated. An MRCP could be performed to evaluate for obstructing CBD stone if clinically indicated. (4) Alcohol intoxication Venkatesh Hall Apr 30, 2020 11:33
[2020-04-30 11:44] VITALS: BP 150/102
--- NOTE | 2020-04-30 12:53 | Internal Med Progress Note ---
Subjective Physician Name Kellee Toledo Attending Physician Kellee Toledo M.D. Current Medications Medications (Trade) Dose Ordered Sig/Nishant Route PRN Reason Start Time Stop Time Status Last Admin Dose Admin Acetaminophen (Tylenol) 650 mg Q4H PRN ORAL Temp >100.5 04/29/20 10:30 05/29/20 10:29 Al Hydroxide/Mg Hydroxide (Mylanta II) 30 ml Q6H PRN ORAL dyspepsia 04/29/20 10:30 05/29/20 10:29 Clonidine HCl (Catapres Tab) 0.1 mg Q4H PRN ORAL SBP>160mmHg 04/29/20 09:30 07/28/20 09:29 04/29/20 09:33 Dextrose (Dextrose 50%) 25 ml Q30M PRN IV Hypoglycemia 04/29/20 10:30 07/28/20 10:29 Dextrose (Dextrose 50%) 50 ml Q30M PRN IV Hypoglycemia 04/29/20 10:30 07/28/20 10:29 Dextrose/ Electrolytes 1,000 ml @ 75 mls/hr [id number] IV 04/29/20 11:30 05/29/20 11:29 04/30/20 06:47 Diphenhydramine HCl (Benadryl) 25 mg Q6H PRN ORAL Itching/Pruritis 04/29/20 10:30 05/29/20 10:29 Famotidine (Pepcid I.v.) 20 mg Q12HR IVP 04/29/20 21:00 05/29/20 20:59 04/30/20 09:15 Lorazepam (Ativan) 1 mg Q4H PRN ORAL For Anxiety 04/29/20 10:30 05/06/20 10:29 Morphine Sulfate (Morphine Sulfate) 2 mg Q3H PRN IVP Moderate Pain (Pain Scale 4-6) 04/29/20 10:30 05/06/20 10:29 04/29/20 11:21 Multivitamins (Multivitamins) 1 tab DAILY ORAL 04/30/20 09:00 05/30/20 08:59 04/30/20 08:20 Ondansetron HCl (Zofran) 4 mg Q6H PRN IVP Nausea & Vomiting 04/29/20 10:30 05/29/20 10:29 04/29/20 11:21 Piperacillin Sod/ Tazobactam Sod 3.375 gm/Sodium Chloride 110 ml @ 27.5 mls/hr EVERY 8 HOURS IVPB 04/29/20 14:00 05/04/20 13:59 04/30/20 07:22 Temazepam (Restoril) 15 mg HSPRN PRN ORAL Insomnia 04/29/20 21:00 05/06/20 20:59 Vancomycin HCl (Vanco pharmacy to dose) 1 ea DAILY PRN MISC Per rx protocol 04/30/20 08:30 05/30/20 08:29 Vancomycin HCl 1 gm/Sodium Chloride 275 ml @ 183.708 mls/hr Q12H IVPB 04/30/20 22:00 05/05/20 21:59 Allergies: Coded Allergies: No Known Allergies (Unverified , 02/29/20) ROS Limited/Unobtainable: No Constitutional: Reports: weakness HEENT: Denies: no symptoms, eye pain, blurred vision, tearing, double vision, ear pain, ear discharge, nose pain, nose congestion, throat pain, throat swelling, mouth pain, mouth swelling, other Cardiovascular: Denies: no symptoms, chest pain, edema, irregular heart rate, lightheadedness, palpitations, syncope, other Respiratory: Denies: no symptoms, cough, orthopnea, shortness of breath, SOB with excertion, SOB at rest, sputum, stridor, wheezing, other Gastrointestinal/Abdominal: Denies: no symptoms, abdomen distended, abdominal pain, black stools, tarry stools, blood in stool, constipated, diarrhea, difficulty swallowing, nausea, poor appetite, poor fluid intake, rectal bleeding , vomiting, other Genitourinary: Denies: no symptoms, burning, discharge, frequency, flank pain, hematuria, incontinence, pain, urgency, other Neurologic/Psychiatric: Denies: no symptoms, anxiety, depressed, emotional problems, headache, numbness, paresthesia, pre-existing deficit, seizure, tingling, tremors, weakness, other Subjective #acute abd pain #nausea, emesis #acute viridiana? - admit inpatient - IV abx- vanco - zosyn - [facility]T[employer] ARCHITECT - IVF - Gi eval - general surger - antiemetics - pain control Objective Last Vital Signs Date Time Temp Pulse Resp B/P (MAP) Pulse Ox O2 Delivery O2 Flow Rate FiO2 04/30/20 11:44 97.7 79 20 150/102 (118) 99 04/30/20 09:00 Room Air Laboratory Tests Test 04/30/20 04:55 White Blood Count 7.3 K/UL (4.8-10.8) Red Blood Count 4.99 M/UL (4.70-6.10) Hemoglobin 14.6 G/DL (14.2-18.0) Hematocrit 43.9 % (42.0-52.0) Mean Corpuscular Volume 88 FL (80-99) Mean Corpuscular Hemoglobin 29.3 PG (27.0-31.0) Mean Corpuscular Hemoglobin Concent 33.3 G/DL (32.0-36.0) Red Cell Distribution Width 14.0 % (11.6-14.8) Platelet Count 230 K/UL (150-450) Mean Platelet Volume 6.6 FL (6.5-10.1) Neutrophils (%) (Auto) 68.3 % (45.0-75.0) Lymphocytes (%) (Auto) 16.2 % (20.0-45.0) L Monocytes (%) (Auto) 14.1 % (1.0-10.0) H Eosinophils (%) (Auto) 0.9 % (0.0-3.0) Basophils (%) (Auto) 0.5 % (0.0-2.0) Prothrombin Time 11.7 SEC (9.30-11.50) H Prothromb Time International Ratio 1.1 (0.9-1.1) Activated Partial Thromboplast Time 27 SEC (23-33) Sodium Level 135 MMOL/L (136-145) L Potassium Level 3.3 MMOL/L (3.5-5.1) L Chloride Level 101 MMOL/L (98-107) Carbon Dioxide Level 28 MMOL/L (21-32) Anion Gap 6 mmol/L (5-15) Blood Urea Nitrogen 9 mg/dL (7-18) Creatinine 0.7 MG/DL (0.55-1.30) Estimat Glomerular Filtration Rate > 60 mL/min (>60) Glucose Level 92 MG/DL (74-106) Hemoglobin A1c 5.8 % (4.3-6.0) Calcium Level 8.7 MG/DL (8.5-10.1) Total Bilirubin 6.7 MG/DL (0.2-1.0) H Direct Bilirubin 4.2 MG/DL (0.0-0.3) H Aspartate Amino Transf (AST/SGOT) 123 U/L (15-37) H Alanine Aminotransferase (ALT/SGPT) 142 U/L (12-78) H Alkaline Phosphatase 177 U/L (46-116) H Pro-B-Type Natriuretic Peptide 1334 pg/mL (0-125) H Total Protein 6.7 G/DL (6.4-8.2) Albumin 2.7 G/DL (3.4-5.0) L Globulin 4.0 g/dL Albumin/Globulin Ratio 0.7 (1.0-2.7) L Triglycerides Level 68 MG/DL (30-150) Cholesterol Level 147 MG/DL (< 200) LDL Cholesterol 75 mg/dL (<100) HDL Cholesterol 64 MG/DL (40-60) H Cholesterol/HDL Ratio 2.3 (3.3-4.4) L Amylase Level 556 U/L (25-115) *H Lipase > 2000 U/L (73-393) H Thyroid Stimulating Hormone (TSH) 0.793 uiU/mL (0.358-3.740) Microbiology Date/Time Source Procedure Growth Status 04/29/20 01:30 Blood Blood Culture - Preliminary Resulted Intake and Output 04/29/20 04/30/20 19:00 07:00 Intake Total 375.0 ml 560.0 ml Output Total 1250 ml 600 ml Balance -875.0 ml -40.0 ml IV Total 375.0 ml 560.0 ml Output Urine Total 1250 ml 600 ml # Voids 1 1 Assessment/Plan Assessment/Plan #acute abd pain #nausea, emesis #acute viridiana? - admit inpatient - IV abx- vanco - zosyn - [facility]T[employer] ARCHITECT - IVF - Gi eval - general surger - antiemetics - pain control Kellee Toledo M.D. Apr 30, 2020 12:53
--- NOTE | 2020-04-30 13:47 | NUR ---
CASE MANAGEMENT:REVIEW 04/30/20 SI: ACUTE CHOLECYSTITIS. CHOLELITHIASIS ALCOHOLIC INTOXICATION 97.7 79 20 150/102 99% ON RA AMYLASE+556 LIPASE>2000 IS: IV KCL Q1HRS X2 IV VANCOMYCIN Q12 IV ZOSYN Q8HRS IV PEPCID Q12 IVF@75/HR IV MORPHINE Q3HRS PRN : MED./SURG STATUS DCP: FROM HOME
--- NOTE | 2020-04-30 13:58 | General Progress Note ---
Subjective ROS Limited/Unobtainable: No Allergies: Coded Allergies: No Known Allergies (Unverified , 02/29/20) Objective Last 24 Hour Vital Signs Date Time Temp Pulse Resp B/P (MAP) Pulse Ox O2 Delivery O2 Flow Rate FiO2 04/30/20 11:44 97.7 79 20 150/102 (118) 99 04/30/20 09:00 Room Air 04/30/20 08:00 98.6 60 20 116/72 (87) 97 04/30/20 04:00 98.7 83 20 150/87 (108) 95 04/30/20 00:00 99.2 81 18 154/95 (114) 97 04/29/20 21:00 Room Air 04/29/20 20:00 98.0 98 18 143/90 (107) 98 04/29/20 16:00 99.2 89 18 149/72 (97) 97 Intake and Output 04/29/20 04/30/20 19:00 07:00 Intake Total 375.0 ml 560.0 ml Output Total 1250 ml 600 ml Balance -875.0 ml -40.0 ml IV Total 375.0 ml 560.0 ml Output Urine Total 1250 ml 600 ml # Voids 1 1 Laboratory Tests 04/30/20 04:55: White Blood Count 7.3, Red Blood Count 4.99, Hemoglobin 14.6, Hematocrit 43.9, Mean Corpuscular Volume 88, Mean Corpuscular Hemoglobin 29.3, Mean Corpuscular Hemoglobin Concent 33.3, Red Cell Distribution Width 14.0, Platelet Count 230, Mean Platelet Volume 6.6, Neutrophils (%) (Auto) 68.3, Lymphocytes (%) (Auto) 16.2L, Monocytes (%) (Auto) 14.1H, Eosinophils (%) (Auto) 0.9, Basophils (%) (Auto) 0.5, Prothrombin Time 11.7H, Prothromb Time International Ratio 1.1, Activated Partial Thromboplast Time 27, Sodium Level 135L, Potassium Level 3.3L, Chloride Level 101, Carbon Dioxide Level 28, Anion Gap 6, Blood Urea Nitrogen 9, Creatinine 0.7, Estimat Glomerular Filtration Rate > 60, Glucose Level 92, Hemoglobin A1c 5.8, Calcium Level 8.7, Total Bilirubin 6.7H, Direct Bilirubin 4.2H, Aspartate Amino Transf (AST/SGOT) 123H, Alanine Aminotransferase (ALT/SGPT) 142H, Alkaline Phosphatase 177H, Pro-B-Type Natriuretic Peptide 1334H , Total Protein 6.7, Albumin 2.7L, Globulin 4.0, Albumin/Globulin Ratio 0.7L, Triglycerides Level 68, Cholesterol Level 147, LDL Cholesterol 75, HDL Cholesterol 64H, Cholesterol/HDL Ratio 2.3L, Amylase Level 556*H, Lipase > 2000H , Thyroid Stimulating Hormone (TSH) 0.793 Height (Feet): 5 Height (Inches): 8.00 Weight (Pounds): 187 General Appearance: no apparent distress EENT: normal ENT inspection Neck: supple Cardiovascular: normal rate Respiratory/Chest: decreased breath sounds Abdomen: normal bowel sounds, non tender, soft Extremities: non-tender Assessment/Plan Problem List: (1) Alcohol intoxication ICD Codes: F10.929 - Alcohol use, unspecified with intoxication, unspecified SNOMED: 34211720 (2) Acute cholecystitis ICD Codes: K81.0 - Acute cholecystitis SNOMED: 48730459 (3) Abdominal pain ICD Codes: R10.9 - Unspecified abdominal pain SNOMED: 57156979 (4) Cholelithiasis ICD Codes: K80.20 - Calculus of gallbladder without cholecystitis without obstruction SNOMED: 506157041 Assessment/Plan: npo ivf pain control repeat labs fu surg plan ERCP on Sunday Angel Lopez MD Apr 30, 2020 13:58
[2020-04-30 16:00] VITALS: BP 155/98
--- NOTE | 2020-04-30 19:20 | NUR ---
NURSE HAND-OFF: Important Events on Shift:[abnormal labs addressed and replaced.] Patient Status: [fc] Diet: [npo] Pending Orders: [labs] Pending Results/Labs:[am] Pending MD notification:[] Latest Vital Signs: Temperature 98.1 , Pulse 75 , B/P 155 /98 , Respiratory Rate 20 , O2 SAT 97 , Room Air, O2 Flow Rate . Vital Sign Comment: [] Latest Lynn Fall Score: 25 Fall Risk: Medium Risk Safety Measures: Call light Within Reach, Bed Alarm Zone 1, Side Rails Side Rails x2, Bed position Low and Locked. Fall Precautions: Yellow Socks Door Sign Patient Fall Education Report given to [yovani].
--- NOTE | 2020-04-30 19:30 | NUR ---
NURSE NOTES: Patient awake in bed, alert and oriented x4, on room air, no SOB noted. IV access on right antecubital and right forearm. Instructed to use call light for assistance. Call light in reach. Bed in lowest and lock engaged. Will continue plan of care.
[2020-04-30 20:00] VITALS: BP 141/91
[2020-04-30] MEDS: Vancomycin 1 GM in NS 275 ML IVPB SCH (21:07)
[2020-05-01] VITALS (7 sets, daily range): BP systolic 128–165; BP diastolic 91–98
[2020-05-01] MEDS: D5 1/2NS w/KCl 20mEq 1,000 ML IV SCH (04:42)
[2020-05-01] MEDS: Piperacillin/Tazobactam 3.375 GM in NS 110 ML IVPB SCH ×3 (04:51→20:57)
[2020-05-01 06:33] LABS: BASOPHILS % (AUTO) 1.6 % (0.0-2.0); EOSINOPHILS % (AUTO) 3.4 % (0.0-3.0); HEMATOCRIT 43.3 % (42.0-52.0); HEMOGLOBIN 14.2 G/DL (14.2-18.0); LYMPHOCYTES % (AUTO) 28.4 % (20.0-45.0); MEAN CORPUSCULAR VOLUME 89 FL (80-99); MONOCYTES % (AUTO) 16.2 % (1.0-10.0); NEUTROPHILS % (AUTO) 50.5 % (45.0-75.0); PLATELET COUNT 239 K/UL (150-450); RED BLOOD COUNT 4.84 M/UL (4.70-6.10); RED CELL DISTRIBUTION WIDTH 14.3 % (11.6-14.8); WHITE BLOOD COUNT 5.4 K/UL (4.8-10.8)
--- NOTE | 2020-05-01 07:02 | NUR ---
NURSE HAND-OFF: Important Events on Shift: abx Patient Status: Diet: npo Pending Orders: Pending Results/Labs: Pending MD notification: Latest Vital Signs: Temperature 98.1 , Pulse 73 , B/P 145 /92 , Respiratory Rate 20 , O2 SAT 96 , Room Air, O2 Flow Rate . Vital Sign Comment: Latest Lynn Fall Score: 25 Fall Risk: Medium Risk Safety Measures: Call light Within Reach, Bed Alarm Zone 1, Side Rails Side Rails x2, Bed position Low and Locked. Fall Precautions: Yellow Socks Door Sign Patient Fall Education Report given to FRANCHESCA Calvillo. Addendum: 05/01/20 at 0709 by JOHANNA VILLASENOR RN Report given to
[2020-05-01 07:12] LABS: ALANINE AMINOTRANSFERASE 109 U/L (12-78); ALBUMIN 2.7 G/DL (3.4-5.0); ALBUMIN/GLOBULIN RATIO 0.6 (1.0-2.7); ALKALINE PHOSPHATASE 158 U/L (46-116); AMYLASE 243 U/L (25-115); ANION GAP 7 mmol/L (5-15); ASPARTATE AMINO TRANSFERASE 56 U/L (15-37); BILIRUBIN,TOTAL 1.7 MG/DL (0.2-1.0); BLOOD UREA NITROGEN 8 mg/dL (7-18); CALCIUM 8.9 MG/DL (8.5-10.1); CARBON DIOXIDE 28 MMOL/L (21-32); CHLORIDE 104 MMOL/L (98-107); CREATININE 0.7 MG/DL (0.55-1.30); SODIUM 139 MMOL/L (136-145)
[2020-05-01 07:18] LABS: BILIRUBIN,DIRECT 0.6 MG/DL (0.0-0.3)
--- NOTE | 2020-05-01 07:30 | NUR ---
NURSE NOTES: RECEIVED PATIENT LYING IN BED, AWAKE, ALERT/ORIENTED X4, [place] SPEAKING. ABLE TO UNDERSTAND AND FOLLOW SIMPLE COMMANDS IN [place]. HEAD OF BED ELEVATED, NO SIGNS AND SYMPTOMS OF ACUTE CARDIO-RESPIRATORY DISTRESS/SHORTNESS OF BREATH, DENIES CHEST PAIN. PIV INTACT/PATENT, IVF INFUSING WELL. RIGHT AC/GAUGE 20 AND RIGHT FOREARM 22G, PATENT AND INTACT. ABDOMEN SOFT/NON TENDER/AUDIBLE BOWEL SOUNDS IN ALL QUADRANTS. KEPT PATIENT NPO XCEPT MEDS/ ICE CHIPS. DENIES ABDOMINAL PAIN, BRP WITH ASSISTANCE. SIDERAILS UP X3/BED IN LOWEST POSITION FOR SAFETY, ENCOURAGED PATIENT TO CONTINUE TO CALL FOR ASSISTANCE, VERBALIZED UNDERSTANDING. CONTINUE WITH CURRENT PLAN OF CARE.
--- NOTE | 2020-05-01 07:31 | General Progress Note ---
Subjective ROS Limited/Unobtainable: Yes Allergies: Coded Allergies: No Known Allergies (Unverified , 02/29/20) Objective Last 24 Hour Vital Signs Date Time Temp Pulse Resp B/P (MAP) Pulse Ox O2 Delivery O2 Flow Rate FiO2 05/01/20 04:00 98.1 73 20 145/92 (109) 96 05/01/20 00:00 97.8 73 20 151/91 (111) 97 04/30/20 21:00 Room Air 04/30/20 20:00 97.1 76 20 141/91 (108) 97 04/30/20 16:00 98.1 75 20 155/98 (117) 97 04/30/20 11:44 97.7 79 20 150/102 (118) 99 04/30/20 09:00 Room Air 04/30/20 08:00 98.6 60 20 116/72 (87) 97 Intake and Output 04/30/20 05/01/20 19:00 07:00 Intake Total 445.0 ml 385 ml Output Total 1000 ml Balance 445.0 ml -615 ml IV Total 445.0 ml 385 ml Output Urine Total 1000 ml # Voids 2 Laboratory Tests 05/01/20 05:20: White Blood Count 5.4, Red Blood Count 4.84, Hemoglobin 14.2, Hematocrit 43.3, Mean Corpuscular Volume 89, Mean Corpuscular Hemoglobin 29.2, Mean Corpuscular Hemoglobin Concent 32.7, Red Cell Distribution Width 14.3, Platelet Count 239, Mean Platelet Volume 6.3L, Neutrophils (%) (Auto) 50.5, Lymphocytes (%) (Auto) 28.4, Monocytes (%) (Auto) 16.2H, Eosinophils (%) (Auto) 3.4H, Basophils (%) (Auto) 1.6, Sodium Level 139, Potassium Level 4.0, Chloride Level 104, Carbon Dioxide Level 28, Anion Gap 7, Blood Urea Nitrogen 8, Creatinine 0.7, Estimat Glomerular Filtration Rate > 60, Glucose Level 78, Calcium Level 8.9, Total Bilirubin 1.7H, Direct Bilirubin 0.6H, Aspartate Amino Transf (AST/SGOT) 56H, Alanine Aminotransferase (ALT/SGPT) 109H, Alkaline Phosphatase 158H, Total Protein 6.9, Albumin 2.7L, Globulin 4.2, Albumin/Globulin Ratio 0.6L, Amylase Level 243H, Lipase 959H Height (Feet): 5 Height (Inches): 8.00 Weight (Pounds): 187 General Appearance: no apparent distress EENT: normal ENT inspection Neck: supple Cardiovascular: normal rate Respiratory/Chest: decreased breath sounds Abdomen: soft, hypoactive bowel sounds, tender Extremities: non-tender Assessment/Plan Problem List: (1) Alcohol intoxication ICD Codes: F10.929 - Alcohol use, unspecified with intoxication, unspecified SNOMED: 21914572 (2) Acute cholecystitis ICD Codes: K81.0 - Acute cholecystitis SNOMED: 02337106 (3) Abdominal pain ICD Codes: R10.9 - Unspecified abdominal pain SNOMED: 39675429 (4) Cholelithiasis ICD Codes: K80.20 - Calculus of gallbladder without cholecystitis without obstruction SNOMED: 096918978 Assessment/Plan: ? passed stone significant improvement in LFTS repeat labs consider cancelling ERCP if lfts cont to improve fu surg recs Angel Covington MD May 01, 2020 07:31
[2020-05-01] MEDS: Vancomycin 1 GM in NS 275 ML IVPB SCH (09:45)
--- NOTE | 2020-05-01 10:07 | Surgery Progress Note ---
Surgery Progress Note Subjective Symptoms: improved, pain absent, tolerating diet, voiding well, passing flatus Objective Last 24 Hour Vital Signs Date Time Temp Pulse Resp B/P (MAP) Pulse Ox O2 Delivery O2 Flow Rate FiO2 05/01/20 08:00 97.1 76 19 151/91 (111) 98 05/01/20 04:00 98.1 73 20 145/92 (109) 96 05/01/20 00:00 97.8 73 20 151/91 (111) 97 04/30/20 21:00 Room Air 04/30/20 20:00 97.1 76 20 141/91 (108) 97 04/30/20 16:00 98.1 75 20 155/98 (117) 97 04/30/20 11:44 97.7 79 20 150/102 (118) 99 I&O Intake and Output 04/30/20 05/01/20 19:00 07:00 Intake Total 445.0 ml 385 ml Output Total 1000 ml Balance 445.0 ml -615 ml IV Total 445.0 ml 385 ml Output Urine Total 1000 ml # Voids 2 Cardiovascular: RSR Respiratory: clear Abdomen: soft, flat, non-tender, present bowel sounds, non-distended Extremities: no edema, no tenderness, no cyanosis Laboratory Tests Test 05/01/20 05:20 White Blood Count 5.4 K/UL (4.8-10.8) Red Blood Count 4.84 M/UL (4.70-6.10) Hemoglobin 14.2 G/DL (14.2-18.0) Hematocrit 43.3 % (42.0-52.0) Mean Corpuscular Volume 89 FL (80-99) Mean Corpuscular Hemoglobin 29.2 PG (27.0-31.0) Mean Corpuscular Hemoglobin Concent 32.7 G/DL (32.0-36.0) Red Cell Distribution Width 14.3 % (11.6-14.8) Platelet Count 239 K/UL (150-450) Mean Platelet Volume 6.3 FL (6.5-10.1) L Neutrophils (%) (Auto) 50.5 % (45.0-75.0) Lymphocytes (%) (Auto) 28.4 % (20.0-45.0) Monocytes (%) (Auto) 16.2 % (1.0-10.0) H Eosinophils (%) (Auto) 3.4 % (0.0-3.0) H Basophils (%) (Auto) 1.6 % (0.0-2.0) Sodium Level 139 MMOL/L (136-145) Potassium Level 4.0 MMOL/L (3.5-5.1) Chloride Level 104 MMOL/L (98-107) Carbon Dioxide Level 28 MMOL/L (21-32) Anion Gap 7 mmol/L (5-15) Blood Urea Nitrogen 8 mg/dL (7-18) Creatinine 0.7 MG/DL (0.55-1.30) Estimat Glomerular Filtration Rate > 60 mL/min (>60) Glucose Level 78 MG/DL (74-106) Calcium Level 8.9 MG/DL (8.5-10.1) Total Bilirubin 1.7 MG/DL (0.2-1.0) H Direct Bilirubin 0.6 MG/DL (0.0-0.3) H Aspartate Amino Transf (AST/SGOT) 56 U/L (15-37) H Alanine Aminotransferase (ALT/SGPT) 109 U/L (12-78) H Alkaline Phosphatase 158 U/L (46-116) H Total Protein 6.9 G/DL (6.4-8.2) Albumin 2.7 G/DL (3.4-5.0) L Globulin 4.2 g/dL Albumin/Globulin Ratio 0.6 (1.0-2.7) L Amylase Level 243 U/L (25-115) H Lipase 959 U/L (73-393) H Plan Problems: (1) Cholelithiasis (2) Abdominal pain (3) Acute cholecystitis Assessment & Plan: 64-year-old male with acute cholecystitis. Afebrile hemodynamic stable labs noted leukocytosis elevated direct and indirect bilirubin. Potential choledocholithiasis. Ultrasound noted. N.p.o. iv fluids MRCP eval for cbd stone iv abx trend labs gi eval for ercp may need cholecystectomy will monitor clinically and follow with recs as results available will follow with recs thank you abd pain near resolved no n/v labs trending cont current care adv diet d/c planning Liver: The liver measures 16.0 cm in craniocaudal dimension. No intrahepatic bile duct dilation. Gallbladder: Gallbladder wall thickness is 4.8 cm. Positive sonographic Patten sign. Gallstones are present. Common bile duct: The common bile duct measures 8.6 mm in diameter. No stones. No dilation. Pancreas: Unremarkable as visualized. Kidneys: The right kidney measures 14.0 x 6.2 x 4.0 cm. The left kidney measures 10.9 x 7.4 x 4.6 cm. 11 cm cyst arising from the right kidney. No follow-up imaging is necessary. No stones. No hydronephrosis. Spleen: Unremarkable. No splenomegaly. Aorta: Unremarkable. No aneurysm. Inferior vena cava: Unremarkable. IMPRESSION: 1. Cholelithiasis with gallbladder wall thickening of 4-5 mm with a positive sonographic Patten sign. This constellation of findings could be seen in the clinical setting of acute cholecystitis. 2. The common bile duct is mildly dilated. An MRCP could be performed to evaluate for obstructing CBD stone if clinically indicated. (4) Alcohol intoxication Venkatesh Hall May 01, 2020 10:07
--- NOTE | 2020-05-01 10:18 | NUR ---
NURSE NOTES: TOLERATING CLEAR LIQUID DIET. WILL CONT TO MONITOR.
--- NOTE | 2020-05-01 14:11 | Internal Med Progress Note ---
Subjective Physician Name Kellee Toledo Attending Physician Kellee Toledo M.D. Current Medications Medications (Trade) Dose Ordered Sig/Nishant Route PRN Reason Start Time Stop Time Status Last Admin Dose Admin Acetaminophen (Tylenol) 650 mg Q4H PRN ORAL Temp >100.5 04/29/20 10:30 05/29/20 10:29 Al Hydroxide/Mg Hydroxide (Mylanta II) 30 ml Q6H PRN ORAL dyspepsia 04/29/20 10:30 05/29/20 10:29 Clonidine HCl (Catapres Tab) 0.1 mg Q4H PRN ORAL SBP>160mmHg 04/29/20 09:30 07/28/20 09:29 04/29/20 09:33 Dextrose (Dextrose 50%) 25 ml Q30M PRN IV Hypoglycemia 04/29/20 10:30 07/28/20 10:29 Dextrose (Dextrose 50%) 50 ml Q30M PRN IV Hypoglycemia 04/29/20 10:30 07/28/20 10:29 Dextrose/ Electrolytes 1,000 ml @ 75 mls/hr [id number] IV 04/29/20 11:30 05/29/20 11:29 05/01/20 04:42 Diphenhydramine HCl (Benadryl) 25 mg Q6H PRN ORAL Itching/Pruritis 04/29/20 10:30 05/29/20 10:29 Famotidine (Pepcid I.v.) 20 mg Q12HR IVP 04/29/20 21:00 05/29/20 20:59 05/01/20 09:45 Lorazepam (Ativan) 1 mg Q4H PRN ORAL For Anxiety 04/29/20 10:30 05/06/20 10:29 Morphine Sulfate (Morphine Sulfate) 2 mg Q3H PRN IVP Moderate Pain (Pain Scale 4-6) 04/29/20 10:30 05/06/20 10:29 04/29/20 11:21 Multivitamins (Multivitamins) 1 tab DAILY ORAL 04/30/20 09:00 05/30/20 08:59 05/01/20 08:53 Ondansetron HCl (Zofran) 4 mg Q6H PRN IVP Nausea & Vomiting 04/29/20 10:30 05/29/20 10:29 04/29/20 11:21 Piperacillin Sod/ Tazobactam Sod 3.375 gm/Sodium Chloride 110 ml @ 27.5 mls/hr EVERY 8 HOURS IVPB 04/29/20 14:00 05/04/20 13:59 05/01/20 04:51 Temazepam (Restoril) 15 mg HSPRN PRN ORAL Insomnia 04/29/20 21:00 05/06/20 20:59 Vancomycin HCl (Vanco pharmacy to dose) 1 ea DAILY PRN MISC Per rx protocol 04/30/20 08:30 05/30/20 08:29 Vancomycin HCl 1 gm/Sodium Chloride 275 ml @ 183.708 mls/hr Q12H IVPB 04/30/20 22:00 05/05/20 21:59 05/01/20 09:45 Allergies: Coded Allergies: No Known Allergies (Unverified , 02/29/20) Subjective #acute abd pain #nausea, emesis #acute viridiana? - admit inpatient - IV abx- vanco - zosyn - EDUCATION ADMINISTRATIVE ASSISTANT - IVF - Gi eval - general surger - antiemetics - pain control Objective Last Vital Signs Date Time Temp Pulse Resp B/P (MAP) Pulse Ox O2 Delivery O2 Flow Rate FiO2 05/01/20 12:00 97.5 80 17 158/98 (118) 98 05/01/20 09:00 Room Air Laboratory Tests Test 05/01/20 05:20 White Blood Count 5.4 K/UL (4.8-10.8) Red Blood Count 4.84 M/UL (4.70-6.10) Hemoglobin 14.2 G/DL (14.2-18.0) Hematocrit 43.3 % (42.0-52.0) Mean Corpuscular Volume 89 FL (80-99) Mean Corpuscular Hemoglobin 29.2 PG (27.0-31.0) Mean Corpuscular Hemoglobin Concent 32.7 G/DL (32.0-36.0) Red Cell Distribution Width 14.3 % (11.6-14.8) Platelet Count 239 K/UL (150-450) Mean Platelet Volume 6.3 FL (6.5-10.1) L Neutrophils (%) (Auto) 50.5 % (45.0-75.0) Lymphocytes (%) (Auto) 28.4 % (20.0-45.0) Monocytes (%) (Auto) 16.2 % (1.0-10.0) H Eosinophils (%) (Auto) 3.4 % (0.0-3.0) H Basophils (%) (Auto) 1.6 % (0.0-2.0) Sodium Level 139 MMOL/L (136-145) Potassium Level 4.0 MMOL/L (3.5-5.1) Chloride Level 104 MMOL/L (98-107) Carbon Dioxide Level 28 MMOL/L (21-32) Anion Gap 7 mmol/L (5-15) Blood Urea Nitrogen 8 mg/dL (7-18) Creatinine 0.7 MG/DL (0.55-1.30) Estimat Glomerular Filtration Rate > 60 mL/min (>60) Glucose Level 78 MG/DL (74-106) Calcium Level 8.9 MG/DL (8.5-10.1) Total Bilirubin 1.7 MG/DL (0.2-1.0) H Direct Bilirubin 0.6 MG/DL (0.0-0.3) H Aspartate Amino Transf (AST/SGOT) 56 U/L (15-37) H Alanine Aminotransferase (ALT/SGPT) 109 U/L (12-78) H Alkaline Phosphatase 158 U/L (46-116) H Total Protein 6.9 G/DL (6.4-8.2) Albumin 2.7 G/DL (3.4-5.0) L Globulin 4.2 g/dL Albumin/Globulin Ratio 0.6 (1.0-2.7) L Amylase Level 243 U/L (25-115) H Lipase 959 U/L (73-393) H Microbiology Date/Time Source Procedure Growth Status 04/29/20 01:30 Blood Blood Culture - Preliminary Staphylococcus Sp Coag Neg Resulted 04/29/20 01:15 Blood Blood Culture - Preliminary Resulted Intake and Output 04/30/20 05/01/20 19:00 07:00 Intake Total 445.0 ml 385 ml Output Total 1000 ml Balance 445.0 ml -615 ml IV Total 445.0 ml 385 ml Output Urine Total 1000 ml # Voids 2 Assessment/Plan Assessment/Plan #acute abd pain #nausea, emesis #acute viridiana? - admit inpatient - IV abx- vanco - zosyn - EDUCATION ADMINISTRATIVE ASSISTANT - IVF - Gi eval - general surger - antiemetics - pain control Kellee Toledo M.D. May 01, 2020 14:11
--- NOTE | 2020-05-01 19:20 | NUR ---
NURSE HAND-OFF: Important Events on Shift:[tolerating food intake] Patient Status: [fc] Diet: [reg] Pending Orders: [labs] Pending Results/Labs:[am] Pending MD notification:[] Latest Vital Signs: Temperature 97.8 , Pulse 76 , B/P 140 /92 , Respiratory Rate 18 , O2 SAT 98 , Room Air, O2 Flow Rate . Vital Sign Comment: [] Latest Lynn Fall Score: 25 Fall Risk: Medium Risk Safety Measures: Call light Within Reach, Bed Alarm Zone 1, Side Rails Side Rails x2, Bed position Low and Locked. Fall Precautions: Yellow Socks Door Sign Patient Fall Education Report given to [tl].
--- NOTE | 2020-05-01 19:29 | Consultation ---
DATE OF CONSULTATION: 05/01/2020 INFECTIOUS DISEASE CONSULTATION CONSULTING PHYSICIAN: Nura Phillips M.D. REASON FOR CONSULT: Acute cholecystitis, pancreatitis, and positive blood culture. HISTORY OF PRESENT ILLNESS: This is a 64-year-old male admitted on April 29, 2020 from home complaining of right upper quadrant abdominal pain, nausea, vomiting after eating pork grinds. The patient has no leukocytosis and no fever, but the bilirubin was elevated. PAST MEDICAL HISTORY: Alcohol dependence. ALLERGIES: No known drug allergies. MEDICATIONS: Getting multivitamin, temazepam, Zosyn, famotidine, Mylanta, diphenhydramine, lorazepam, morphine, Zofran, Tylenol, clonidine, and vancomycin. SOCIAL HISTORY: Single. Has history of drinking. No drug abuse. No smoking. REVIEW OF SYSTEMS: The patient currently is pain-free. No fever, no coughing, no abdominal pain. Using clear liquid diet and tolerating it. PHYSICAL EXAMINATION: VITAL SIGNS: Temperature 97.5, pulse 80, blood pressure is 158/98. GENERAL APPEARANCE: Well developed, no acute distress. HEAD AND NECK: [place] conjunctivae. HEART: Normal rate. LUNGS: Clear. ABDOMEN: Obese. Soft. EXTREMITIES: No edema. NEUROLOGIC: Awake and responsive. LABORATORY AND DIAGNOSTIC DATA: WBC 5.1, hemoglobin 14.2, hematocrit 43.3, platelets are 239,000. Sodium 139, potassium 4, chloride 104, bicarbonate 28, BUN 8, creatinine 0.7. Bilirubin was 1.7, yesterday it was 6.7. AST 56, ALT 109, alkaline phosphatase 158. Lipase is 959. It was more than 2000 yesterday. Initial ultrasound of the abdomen showed cholelithiasis with gallbladder wall thickening with positive Patten sign. MRI of the abdomen showed cholelithiasis, but did not show any gallbladder wall thickening, edema surrounding the pancreatic head and body, suggestive of acute pancreatitis. Blood cultures have coagulase-negative staph. IMPRESSION: Acute cholecystitis, seems to have suffered biliary pancreatitis, has a history of alcohol dependence, positive blood culture with coagulase-negative staph, likely contamination. RECOMMENDATION: Continue Zosyn. We will discontinue IV vancomycin. At the end of my exam, I thank Dr. Toledo for involving me in the care of this patient. Nura Phillips M.D. DR: DENNIS JOB#: [id number] CC: PAT
--- NOTE | 2020-05-01 21:30 | NUR ---
NURSE NOTES: Pt is in bed, awake and alert. No acute distress noted. Vitals stable. No complaints of pain. Fall precaution in place. Pt will be monitored.
[2020-05-02] VITALS: BP 139/84
[2020-05-02 04:00] VITALS: BP 156/95
[2020-05-02] MEDS: Piperacillin/Tazobactam 3.375 GM in NS 110 ML IVPB SCH (06:00)
--- NOTE | 2020-05-02 07:15 | NUR ---
NURSE HAND-OFF: Important Events on Shift:[] Patient Status: [Stable] Diet: [Reg] Pending Orders: [] Pending Results/Labs:[] Pending MD notification:[] Latest Vital Signs: Temperature 97.7 , Pulse 77 , B/P 156 /95 , Respiratory Rate 19 , O2 SAT 96 , Room Air, O2 Flow Rate . Vital Sign Comment: [] Latest Lynn Fall Score: 25 Fall Risk: Medium Risk Safety Measures: Call light Within Reach, Bed Alarm Zone 1, Side Rails Side Rails x2, Bed position Low and Locked. Fall Precautions: Yellow Socks Door Sign Patient Fall Education Report given to [Andree Camacho RN].
--- NOTE | 2020-05-02 07:47 | NUR ---
NURSE NOTES: RN received report from Navi and patient sitting on the bed. Patient is aaoX4, denies any respiratory distress or pain. IV running, intact, dry and asymptomatic. Patient is able to make needs known. Call light within reach. Bed in lowest position, locked, bed alarm on. Side rails up X2. Will continue to monitor.
[2020-05-02 08:00] VITALS: BP 146/83
--- NOTE | 2020-05-02 09:13 | General Progress Note ---
Subjective ROS Limited/Unobtainable: Yes Allergies: Coded Allergies: No Known Allergies (Unverified , 02/29/20) Objective Last 24 Hour Vital Signs Date Time Temp Pulse Resp B/P (MAP) Pulse Ox O2 Delivery O2 Flow Rate FiO2 05/02/20 08:00 97.4 83 18 146/83 (104) 98 05/02/20 04:00 97.7 77 19 156/95 (115) 96 05/02/20 00:00 97.6 80 19 139/84 (102) 96 05/01/20 21:00 Room Air 05/01/20 20:00 98.2 82 18 128/94 (105) 97 05/01/20 17:42 76 140/92 (108) 05/01/20 16:24 165/96 05/01/20 16:00 97.8 78 18 165/96 (119) 98 05/01/20 12:00 97.5 80 17 158/98 (118) 98 Intake and Output 05/01/20 05/02/20 19:00 07:00 Intake Total 865.000 ml Output Total 1800 ml 500 ml Balance -935.000 ml -500 ml Intake Oral 480 ml IV Total 385.000 ml Output Urine Total 1800 ml Other 500 ml Height (Feet): 5 Height (Inches): 8.00 Weight (Pounds): 187 General Appearance: no apparent distress EENT: normal ENT inspection Neck: supple Cardiovascular: normal rate Respiratory/Chest: decreased breath sounds Abdomen: normal bowel sounds, non tender, soft Assessment/Plan Problem List: (1) Alcohol intoxication ICD Codes: F10.929 - Alcohol use, unspecified with intoxication, unspecified SNOMED: 57884285 (2) Acute cholecystitis ICD Codes: K81.0 - Acute cholecystitis SNOMED: 61447292 (3) Abdominal pain ICD Codes: R10.9 - Unspecified abdominal pain SNOMED: 73121000 (4) Cholelithiasis ICD Codes: K80.20 - Calculus of gallbladder without cholecystitis without obstruction SNOMED: 731569182 Assessment/Plan: ? passed stone significant improvement in LFTS repeat labs consider cancelling ERCP if lfts cont to improve fu surg recs Angel Covington MD May 02, 2020 09:13
[2020-05-02 09:38] LABS: BASOPHILS % (AUTO) 1.5 % (0.0-2.0); EOSINOPHILS % (AUTO) 3.5 % (0.0-3.0); HEMATOCRIT 44.3 % (42.0-52.0); HEMOGLOBIN 14.5 G/DL (14.2-18.0); MEAN CORPUSCULAR VOLUME 90 FL (80-99); MONOCYTES % (AUTO) 11.5 % (1.0-10.0); NEUTROPHILS % (AUTO) 50.5 % (45.0-75.0); PLATELET COUNT 249 K/UL (150-450); RED BLOOD COUNT 4.93 M/UL (4.70-6.10); RED CELL DISTRIBUTION WIDTH 14.5 % (11.6-14.8); WHITE BLOOD COUNT 4.9 K/UL (4.8-10.8)
[2020-05-02 09:59] LABS: ALANINE AMINOTRANSFERASE 88 U/L (12-78); ALBUMIN 2.8 G/DL (3.4-5.0); ALBUMIN/GLOBULIN RATIO 0.6 (1.0-2.7); ALKALINE PHOSPHATASE 143 U/L (46-116); AMYLASE 87 U/L (25-115); ANION GAP 7 mmol/L (5-15); ASPARTATE AMINO TRANSFERASE 34 U/L (15-37); BILIRUBIN,TOTAL 0.9 MG/DL (0.2-1.0); BLOOD UREA NITROGEN 10 mg/dL (7-18); CALCIUM 9.3 MG/DL (8.5-10.1); CARBON DIOXIDE 28 MMOL/L (21-32); CHLORIDE 105 MMOL/L (98-107); CREATININE 0.8 MG/DL (0.55-1.30); POTASSIUM 3.9 MMOL/L (3.5-5.1); SODIUM 140 MMOL/L (136-145)
[2020-05-02 12:00] VITALS: BP 150/75
--- NOTE | 2020-05-02 12:24 | Surgery Progress Note ---
Surgery Progress Note Subjective Symptoms: improved, pain absent, tolerating diet, voiding well, passing flatus, BM Objective Last 24 Hour Vital Signs Date Time Temp Pulse Resp B/P (MAP) Pulse Ox O2 Delivery O2 Flow Rate FiO2 05/02/20 08:00 97.4 83 18 146/83 (104) 98 05/02/20 04:00 97.7 77 19 156/95 (115) 96 05/02/20 00:00 97.6 80 19 139/84 (102) 96 05/01/20 21:00 Room Air 05/01/20 20:00 98.2 82 18 128/94 (105) 97 05/01/20 17:42 76 140/92 (108) 05/01/20 16:24 165/96 05/01/20 16:00 97.8 78 18 165/96 (119) 98 I&O Intake and Output 05/01/20 05/02/20 19:00 07:00 Intake Total 865.000 ml Output Total 1800 ml 500 ml Balance -935.000 ml -500 ml Intake Oral 480 ml IV Total 385.000 ml Output Urine Total 1800 ml Other 500 ml Cardiovascular: RSR Respiratory: clear Abdomen: soft, flat, non-tender, present bowel sounds, non-distended Extremities: no edema, no tenderness, no cyanosis Laboratory Tests Test 05/02/20 07:57 White Blood Count 4.9 K/UL (4.8-10.8) Red Blood Count 4.93 M/UL (4.70-6.10) Hemoglobin 14.5 G/DL (14.2-18.0) Hematocrit 44.3 % (42.0-52.0) Mean Corpuscular Volume 90 FL (80-99) Mean Corpuscular Hemoglobin 29.4 PG (27.0-31.0) Mean Corpuscular Hemoglobin Concent 32.7 G/DL (32.0-36.0) Red Cell Distribution Width 14.5 % (11.6-14.8) Platelet Count 249 K/UL (150-450) Mean Platelet Volume 6.3 FL (6.5-10.1) L Neutrophils (%) (Auto) 50.5 % (45.0-75.0) Lymphocytes (%) (Auto) 33.0 % (20.0-45.0) Monocytes (%) (Auto) 11.5 % (1.0-10.0) H Eosinophils (%) (Auto) 3.5 % (0.0-3.0) H Basophils (%) (Auto) 1.5 % (0.0-2.0) Sodium Level 140 MMOL/L (136-145) Potassium Level 3.9 MMOL/L (3.5-5.1) Chloride Level 105 MMOL/L (98-107) Carbon Dioxide Level 28 MMOL/L (21-32) Anion Gap 7 mmol/L (5-15) Blood Urea Nitrogen 10 mg/dL (7-18) Creatinine 0.8 MG/DL (0.55-1.30) Estimat Glomerular Filtration Rate > 60 mL/min (>60) Glucose Level 112 MG/DL (74-106) H Calcium Level 9.3 MG/DL (8.5-10.1) Total Bilirubin 0.9 MG/DL (0.2-1.0) Aspartate Amino Transf (AST/SGOT) 34 U/L (15-37) Alanine Aminotransferase (ALT/SGPT) 88 U/L (12-78) H Alkaline Phosphatase 143 U/L (46-116) H Total Protein 7.3 G/DL (6.4-8.2) Albumin 2.8 G/DL (3.4-5.0) L Globulin 4.5 g/dL Albumin/Globulin Ratio 0.6 (1.0-2.7) L Amylase Level 87 U/L (25-115) Lipase 403 U/L (73-393) H Plan Problems: (1) Cholelithiasis (2) Abdominal pain (3) Acute cholecystitis Assessment & Plan: 64-year-old male with acute cholecystitis. Afebrile hemodynamic stable labs noted leukocytosis elevated direct and indirect bilirubin. Potential choledocholithiasis. Ultrasound noted. N.p.o. iv fluids MRCP eval for cbd stone iv abx trend labs gi eval for ercp may need cholecystectomy will monitor clinically and follow with recs as results available will follow with recs thank you abd pain near resolved no n/v labs trending cont current care adv diet d/c planning oral abx f/u outpatient with pcp for surgical referral and elective viridiana Liver: The liver measures 16.0 cm in craniocaudal dimension. No intrahepatic bile duct dilation. Gallbladder: Gallbladder wall thickness is 4.8 cm. Positive sonographic Patten sign. Gallstones are present. Common bile duct: The common bile duct measures 8.6 mm in diameter. No stones. No dilation. Pancreas: Unremarkable as visualized. Kidneys: The right kidney measures 14.0 x 6.2 x 4.0 cm. The left kidney measures 10.9 x 7.4 x 4.6 cm. 11 cm cyst arising from the right kidney. No follow-up imaging is necessary. No stones. No hydronephrosis. Spleen: Unremarkable. No splenomegaly. Aorta: Unremarkable. No aneurysm. Inferior vena cava: Unremarkable. IMPRESSION: 1. Cholelithiasis with gallbladder wall thickening of 4-5 mm with a positive sonographic Patten sign. This constellation of findings could be seen in the clinical setting of acute cholecystitis. 2. The common bile duct is mildly dilated. An MRCP could be performed to evaluate for obstructing CBD stone if clinically indicated. (4) Alcohol intoxication Venkatesh Hall May 02, 2020 12:24
[2020-05-02] MEDS: metroNIDAZOLE 250mg tab ORAL SCH ×2 (14:25→20:54)
[2020-05-02 16:00] VITALS: BP 155/104
--- NOTE | 2020-05-02 16:57 | Internal Med Progress Note ---
Subjective Physician Name Kellee Toledo Attending Physician Kellee oTledo M.D. Current Medications Medications (Trade) Dose Ordered Sig/Nishant Route PRN Reason Start Time Stop Time Status Last Admin Dose Admin Acetaminophen (Tylenol) 650 mg Q4H PRN ORAL Temp >100.5 04/29/20 10:30 05/29/20 10:29 Al Hydroxide/Mg Hydroxide (Mylanta II) 30 ml Q6H PRN ORAL dyspepsia 04/29/20 10:30 05/29/20 10:29 Ciprofloxacin (Cipro 500mg tab) 500 mg EVERY 12 HOURS ORAL 05/02/20 21:00 05/09/20 20:59 Clonidine HCl (Catapres Tab) 0.1 mg Q4H PRN ORAL SBP>160mmHg 04/29/20 09:30 07/28/20 09:29 05/01/20 16:24 Dextrose (Dextrose 50%) 25 ml Q30M PRN IV Hypoglycemia 04/29/20 10:30 07/28/20 10:29 Dextrose (Dextrose 50%) 50 ml Q30M PRN IV Hypoglycemia 04/29/20 10:30 07/28/20 10:29 Diphenhydramine HCl (Benadryl) 25 mg Q6H PRN ORAL Itching/Pruritis 04/29/20 10:30 05/29/20 10:29 Lorazepam (Ativan) 1 mg Q4H PRN ORAL For Anxiety 04/29/20 10:30 05/06/20 10:29 Metronidazole (Flagyl) 500 mg Q8HR ORAL 05/02/20 14:00 05/09/20 13:59 05/02/20 14:25 Morphine Sulfate (Morphine Sulfate) 2 mg Q3H PRN IVP Moderate Pain (Pain Scale 4-6) 04/29/20 10:30 05/06/20 10:29 04/29/20 11:21 Multivitamins (Multivitamins) 1 tab DAILY ORAL 04/30/20 09:00 05/30/20 08:59 05/02/20 09:24 Ondansetron HCl (Zofran) 4 mg Q6H PRN IVP Nausea & Vomiting 04/29/20 10:30 05/29/20 10:29 04/29/20 11:21 Temazepam (Restoril) 15 mg HSPRN PRN ORAL Insomnia 04/29/20 21:00 05/06/20 20:59 Allergies: Coded Allergies: No Known Allergies (Unverified , 02/29/20) Subjective #acute abd pain #nausea, emesis #acute viridiana? - admit inpatient - IV abx- vanco - zosyn - BASIC COMBATANT SWIMMER - IVF - Gi eval - general surger - antiemetics - pain control Objective Last Vital Signs Date Time Temp Pulse Resp B/P (MAP) Pulse Ox O2 Delivery O2 Flow Rate FiO2 05/02/20 12:00 97.2 82 20 150/75 (100) 98 05/02/20 09:00 Room Air Laboratory Tests Test 05/02/20 07:57 White Blood Count 4.9 K/UL (4.8-10.8) Red Blood Count 4.93 M/UL (4.70-6.10) Hemoglobin 14.5 G/DL (14.2-18.0) Hematocrit 44.3 % (42.0-52.0) Mean Corpuscular Volume 90 FL (80-99) Mean Corpuscular Hemoglobin 29.4 PG (27.0-31.0) Mean Corpuscular Hemoglobin Concent 32.7 G/DL (32.0-36.0) Red Cell Distribution Width 14.5 % (11.6-14.8) Platelet Count 249 K/UL (150-450) Mean Platelet Volume 6.3 FL (6.5-10.1) L Neutrophils (%) (Auto) 50.5 % (45.0-75.0) Lymphocytes (%) (Auto) 33.0 % (20.0-45.0) Monocytes (%) (Auto) 11.5 % (1.0-10.0) H Eosinophils (%) (Auto) 3.5 % (0.0-3.0) H Basophils (%) (Auto) 1.5 % (0.0-2.0) Sodium Level 140 MMOL/L (136-145) Potassium Level 3.9 MMOL/L (3.5-5.1) Chloride Level 105 MMOL/L (98-107) Carbon Dioxide Level 28 MMOL/L (21-32) Anion Gap 7 mmol/L (5-15) Blood Urea Nitrogen 10 mg/dL (7-18) Creatinine 0.8 MG/DL (0.55-1.30) Estimat Glomerular Filtration Rate > 60 mL/min (>60) Glucose Level 112 MG/DL (74-106) H Calcium Level 9.3 MG/DL (8.5-10.1) Total Bilirubin 0.9 MG/DL (0.2-1.0) Aspartate Amino Transf (AST/SGOT) 34 U/L (15-37) Alanine Aminotransferase (ALT/SGPT) 88 U/L (12-78) H Alkaline Phosphatase 143 U/L (46-116) H Total Protein 7.3 G/DL (6.4-8.2) Albumin 2.8 G/DL (3.4-5.0) L Globulin 4.5 g/dL Albumin/Globulin Ratio 0.6 (1.0-2.7) L Amylase Level 87 U/L (25-115) Lipase 403 U/L (73-393) H Intake and Output 05/01/20 05/02/20 19:00 07:00 Intake Total 865.000 ml Output Total 1800 ml 500 ml Balance -935.000 ml -500 ml Intake Oral 480 ml IV Total 385.000 ml Output Urine Total 1800 ml Other 500 ml Assessment/Plan Assessment/Plan #acute abd pain #nausea, emesis #acute viridiana? - admit inpatient - IV abx- vanco - zosyn - BASIC COMBATANT SWIMMER - IVF - Gi eval - general surger - antiemetics - pain control Kellee Toledo M.D. May 02, 2020 16:57
--- NOTE | 2020-05-02 19:15 | NUR ---
NURSE HAND-OFF: Important Events on Shift:may DC tomorrow if vitals look stable per Dr. Hall Patient Status: stable Diet: regular Pending Orders: n/a Pending Results/Labs:n/a Pending MD notification:n/a Latest Vital Signs: Temperature 97.7 , Pulse 83 , B/P 155 /104 , Respiratory Rate 20 , O2 SAT 98 , Room Air, O2 Flow Rate . Vital Sign Comment: HTN Latest Lynn Fall Score: 25 Fall Risk: Medium Risk Safety Measures: Call light Within Reach, Bed Alarm Zone 1, Side Rails Side Rails x2, Bed position Low and Locked. Fall Precautions: Yellow Socks Door Sign Patient Fall Education Report given to Tayler.
[2020-05-02 20:00] VITALS: BP 171/102
[2020-05-02] MEDS: Ciprofloxacin 500mg tab ORAL SCH (20:54)
--- NOTE | 2020-05-02 21:00 | NUR ---
NURSE NOTES: Patient able to sign consent for ERCP tomorrow. Patient verbalized understanding that he will have to be NPO at midnight.
[2020-05-03] VITALS: BP 143/98
[2020-05-03 04:00] VITALS: BP 141/94
[2020-05-03] MEDS: metroNIDAZOLE 250mg tab ORAL SCH (06:05)
--- NOTE | 2020-05-03 06:30 | General Progress Note ---
Subjective ROS Limited/Unobtainable: No Allergies: Coded Allergies: No Known Allergies (Unverified , 02/29/20) Objective Last 24 Hour Vital Signs Date Time Temp Pulse Resp B/P (MAP) Pulse Ox O2 Delivery O2 Flow Rate FiO2 05/03/20 04:00 98.0 75 18 141/94 (110) 97 05/03/20 00:00 98.0 79 20 143/98 (113) 97 05/02/20 21:43 Room Air 05/02/20 20:54 82 171/102 05/02/20 20:00 98.4 82 20 171/102 (125) 97 05/02/20 19:49 171/102 05/02/20 16:00 97.7 83 20 155/104 (121) 98 05/02/20 12:00 97.2 82 20 150/75 (100) 98 05/02/20 09:00 Room Air 05/02/20 08:00 97.4 83 18 146/83 (104) 98 Intake and Output 05/02/20 05/03/20 19:00 07:00 Intake Total 1015.0 ml Balance 1015.0 ml Intake Oral 960 ml IV Total 55.0 ml # Voids 3 1 Laboratory Tests 05/02/20 07:57: White Blood Count 4.9, Red Blood Count 4.93, Hemoglobin 14.5, Hematocrit 44.3, Mean Corpuscular Volume 90, Mean Corpuscular Hemoglobin 29.4, Mean Corpuscular Hemoglobin Concent 32.7, Red Cell Distribution Width 14.5, Platelet Count 249, Mean Platelet Volume 6.3L, Neutrophils (%) (Auto) 50.5, Lymphocytes (%) (Auto) 33.0, Monocytes (%) (Auto) 11.5H, Eosinophils (%) (Auto) 3.5H, Basophils (%) (Auto) 1.5, Sodium Level 140, Potassium Level 3.9, Chloride Level 105, Carbon Dioxide Level 28, Anion Gap 7, Blood Urea Nitrogen 10, Creatinine 0.8, Estimat Glomerular Filtration Rate > 60, Glucose Level 112H, Calcium Level 9.3, Total Bilirubin 0.9, Aspartate Amino Transf (AST/SGOT) 34, Alanine Aminotransferase ( ALT/SGPT) 88H, Alkaline Phosphatase 143H, Total Protein 7.3, Albumin 2.8L, G lobulin 4.5, Albumin/Globulin Ratio 0.6L, Amylase Level 87, Lipase 403H Height (Feet): 5 Height (Inches): 8.00 Weight (Pounds): 187 General Appearance: no apparent distress EENT: normal ENT inspection Neck: supple Cardiovascular: normal rate Respiratory/Chest: decreased breath sounds Abdomen: hypoactive bowel sounds Extremities: non-tender Assessment/Plan Problem List: (1) Alcohol intoxication ICD Codes: F10.929 - Alcohol use, unspecified with intoxication, unspecified SNOMED: 94190681 (2) Acute cholecystitis ICD Codes: K81.0 - Acute cholecystitis SNOMED: 74433503 (3) Abdominal pain ICD Codes: R10.9 - Unspecified abdominal pain SNOMED: 25879312 (4) Cholelithiasis ICD Codes: K80.20 - Calculus of gallbladder without cholecystitis without obstruction SNOMED: 313901821 Assessment/Plan: ? passed stone significant improvement in LFTS repeat labs will cancel ERCP fu surg recs Angel Covington MD May 03, 2020 06:29
[2020-05-03 07:18] LABS: BASOPHILS % (AUTO) 2.1 % (0.0-2.0); EOSINOPHILS % (AUTO) 4.8 % (0.0-3.0); HEMATOCRIT 42.7 % (42.0-52.0); HEMOGLOBIN 14.1 G/DL (14.2-18.0); LYMPHOCYTES % (AUTO) 39.1 % (20.0-45.0); MEAN CORPUSCULAR VOLUME 89 FL (80-99); MONOCYTES % (AUTO) 12.4 % (1.0-10.0); NEUTROPHILS % (AUTO) 41.6 % (45.0-75.0); PLATELET COUNT 258 K/UL (150-450); RED BLOOD COUNT 4.83 M/UL (4.70-6.10); RED CELL DISTRIBUTION WIDTH 14.3 % (11.6-14.8); WHITE BLOOD COUNT 4.9 K/UL (4.8-10.8)
--- NOTE | 2020-05-03 07:37 | NUR ---
NURSE NOTES: Report given to FRANCHESCA Mcclellan
--- NOTE | 2020-05-03 07:40 | NUR ---
NURSE NOTES: Received report from FRANCHESCA Blue. Rounding done with outgoing nurse. Pt a/o x 4, having breakfast. No SOB noted. Denies any pain at this time. Rt FA IV is in placed. Bed in lowest position, call light within reach. Will continue to monitor.
[2020-05-03 07:43] LABS: ALANINE AMINOTRANSFERASE 73 U/L (12-78); ALBUMIN 2.8 G/DL (3.4-5.0); ALBUMIN/GLOBULIN RATIO 0.7 (1.0-2.7); ALKALINE PHOSPHATASE 129 U/L (46-116); AMYLASE 81 U/L (25-115); ANION GAP 8 mmol/L (5-15); ASPARTATE AMINO TRANSFERASE 26 U/L (15-37); BILIRUBIN,TOTAL 0.6 MG/DL (0.2-1.0); BLOOD UREA NITROGEN 14 mg/dL (7-18); CALCIUM 9.3 MG/DL (8.5-10.1); CARBON DIOXIDE 26 MMOL/L (21-32); CHLORIDE 106 MMOL/L (98-107); CREATININE 0.7 MG/DL (0.55-1.30); POTASSIUM 3.7 MMOL/L (3.5-5.1); SODIUM 140 MMOL/L (136-145)
[2020-05-03 08:00] VITALS: BP 149/96
[2020-05-03 08:38] VITALS: BP 149/96
[2020-05-03] MEDS: Ciprofloxacin 500mg tab ORAL SCH (08:38)
[2020-05-03] MEDS ORDERED: CIPRO500 MG PO (09:29)
[2020-05-03] MEDS ORDERED: METRONIDAZOLE500 MG ORAL (09:30)
--- NOTE | 2020-05-03 09:44 | Surgery Progress Note ---
Surgery Progress Note Subjective Symptoms: improved, pain absent, tolerating diet, voiding well, passing flatus, BM Objective Last 24 Hour Vital Signs Date Time Temp Pulse Resp B/P (MAP) Pulse Ox O2 Delivery O2 Flow Rate FiO2 05/03/20 08:38 89 149/96 05/03/20 08:00 97.1 89 18 149/96 (113) 95 05/03/20 04:00 98.0 75 18 141/94 (110) 97 05/03/20 00:00 98.0 79 20 143/98 (113) 97 05/02/20 21:43 Room Air 05/02/20 20:54 82 171/102 05/02/20 20:00 98.4 82 20 171/102 (125) 97 05/02/20 19:49 171/102 05/02/20 16:00 97.7 83 20 155/104 (121) 98 05/02/20 12:00 97.2 82 20 150/75 (100) 98 I&O Intake and Output 05/02/20 05/03/20 19:00 07:00 Intake Total 1015.0 ml Balance 1015.0 ml Intake Oral 960 ml IV Total 55.0 ml # Voids 3 1 Cardiovascular: RSR Respiratory: clear Abdomen: soft, flat, non-tender, present bowel sounds, non-distended Extremities: no edema, no tenderness, no cyanosis Laboratory Tests Test 05/03/20 05:00 White Blood Count 4.9 K/UL (4.8-10.8) Red Blood Count 4.83 M/UL (4.70-6.10) Hemoglobin 14.1 G/DL (14.2-18.0) L Hematocrit 42.7 % (42.0-52.0) Mean Corpuscular Volume 89 FL (80-99) Mean Corpuscular Hemoglobin 29.1 PG (27.0-31.0) Mean Corpuscular Hemoglobin Concent 32.9 G/DL (32.0-36.0) Red Cell Distribution Width 14.3 % (11.6-14.8) Platelet Count 258 K/UL (150-450) Mean Platelet Volume 6.2 FL (6.5-10.1) L Neutrophils (%) (Auto) 41.6 % (45.0-75.0) L Lymphocytes (%) (Auto) 39.1 % (20.0-45.0) Monocytes (%) (Auto) 12.4 % (1.0-10.0) H Eosinophils (%) (Auto) 4.8 % (0.0-3.0) H Basophils (%) (Auto) 2.1 % (0.0-2.0) H Sodium Level 140 MMOL/L (136-145) Potassium Level 3.7 MMOL/L (3.5-5.1) Chloride Level 106 MMOL/L (98-107) Carbon Dioxide Level 26 MMOL/L (21-32) Anion Gap 8 mmol/L (5-15) Blood Urea Nitrogen 14 mg/dL (7-18) Creatinine 0.7 MG/DL (0.55-1.30) Estimat Glomerular Filtration Rate > 60 mL/min (>60) Glucose Level 101 MG/DL (74-106) Calcium Level 9.3 MG/DL (8.5-10.1) Total Bilirubin 0.6 MG/DL (0.2-1.0) Aspartate Amino Transf (AST/SGOT) 26 U/L (15-37) Alanine Aminotransferase (ALT/SGPT) 73 U/L (12-78) Alkaline Phosphatase 129 U/L (46-116) H Total Protein 7.1 G/DL (6.4-8.2) Albumin 2.8 G/DL (3.4-5.0) L Globulin 4.3 g/dL Albumin/Globulin Ratio 0.7 (1.0-2.7) L Amylase Level 81 U/L (25-115) Lipase 343 U/L (73-393) Plan Problems: (1) Cholelithiasis (2) Abdominal pain (3) Acute cholecystitis Assessment & Plan: 64-year-old male with acute cholecystitis. Afebrile hemodynamic stable labs noted leukocytosis elevated direct and indirect bilirubin. Potential choledocholithiasis. Ultrasound noted. N.p.o. iv fluids MRCP eval for cbd stone iv abx trend labs gi eval for ercp may need cholecystectomy will monitor clinically and follow with recs as results available will follow with recs thank you abd pain near resolved no n/v labs trending cont current care adv diet d/c planning oral abx f/u outpatient with pcp for surgical referral and elective cholecystectomy lip resolved lft's resolved pain resolved needs to allow for pancreatitis inflammation to resolve. f/u with pcp outpatient for surgical referral and consideration of elective cholecystectomy okay to d/c from surgical standpoint discussed in detail at bedside with patient and staff Liver: The liver measures 16.0 cm in craniocaudal dimension. No intrahepatic bile duct dilation. Gallbladder: Gallbladder wall thickness is 4.8 cm. Positive sonographic Patten sign. Gallstones are present. Common bile duct: The common bile duct measures 8.6 mm in diameter. No stones. No dilation. Pancreas: Unremarkable as visualized. Kidneys: The right kidney measures 14.0 x 6.2 x 4.0 cm. The left kidney measures 10.9 x 7.4 x 4.6 cm. 11 cm cyst arising from the right kidney. No follow-up imaging is necessary. No stones. No hydronephrosis. Spleen: Unremarkable. No splenomegaly. Aorta: Unremarkable. No aneurysm. Inferior vena cava: Unremarkable. IMPRESSION: 1. Cholelithiasis with gallbladder wall thickening of 4-5 mm with a positive sonographic Patten sign. This constellation of findings could be seen in the clinical setting of acute cholecystitis. 2. The common bile duct is mildly dilated. An MRCP could be performed to evaluate for obstructing CBD stone if clinically indicated. (4) Alcohol intoxication Venkatesh Hall May 03, 2020 09:44
--- NOTE | 2020-05-03 10:50 | NUR ---
NURSE NOTES: Discharge instruction was given. Prescription was given. ID/IV removed. Pt discharged in stable condition.
--- NOTE | 2020-05-04 15:54 | Discharge Summary ---
Discharge Summary Discharge Summary _ DATE OF ADMISSION: 04/29/2020 DATE OF DISCHARGE: 05/03/2020 DISCHARGED BY: Dr. Toledo REASON FOR ADMISSION: 64 years old male with past medical history of alcohol dependency, presented to emergency department complaining of the right upper quadrant abdominal pain , that started after he was eating pork grinds. Patient also reported nonbloody nonbilious vomiting. He denied fever and chills. He denied diarrhea. No dysuria or flank pain No blood in the stool. He denied similar symptoms in the past. On evaluation patient was afebrile Laboratory work-up revealed no leukocytosis, stable hemoglobin, hematocrit and platelet count. Urinalysis revealed no evidence of urinary tract infection. Stable electrolytes and renal parameters. Glucose 129. AST 57, ALT 47 , alkaline phosphatase 117, lipase 176. Abdominal ultrasound revealed cholelithiasis with gallbladder wall thickening 4 to 5 mm and positive sonographic Patten sign. The common bile duct was mildly dilated. Patient admitted with possible acute cholecystitis and abdominal pain with nausea and emesis. CONSULTANTS: ID specialist Dr. Nura Phillips GI specialist Dr. Covington surgery [facility] COURSE: Patient admitted to medical surgical floor . Patient started on empiric antibiotic and IV hydration . Patient was kept n.p.o. General surgery and GI specialist followed. Pain management was addressed Antiemetic provided as needed. Lipase tatianna from initial 176 to above 2000 and then started to trend down . Amylase was increased at the time of increased lipase as well, but trended down as well, and prior to discharge both lipase and amylase were within normal limits. GI specialist followed . Initially ERCP was planned, but patient demonstrated significant improvement in LFT , possibly passed stone . ERCP was canceled. Blood culture revealed staph coagulase negative , likely contaminant as epr ID specialist. Patient remained afebrile , no leukocytosis. Patient was on empiric antibiotic for possible acute cholecystitis , and switched to oral upon discharge to complete the course. Abdominal MRI revealed cholelithiasis and minimal if any gallbladder wall thickening. Dilated extrahepatic bile duct, 11 mm in diameter. No evidence of choledocholithiasis or definite downstream obstructive lesion was demonstrated. Edema surrounding the pancreatic head and body cyst , suspicious for acute pancreatitis. Unremarkable pancreatic duct. Patient remained afebrile, no leukocytosis . General surgeon followed . Patient remained afebrile and stable hemodynamically. MRI was closely reviewed. Patient started slowly on oral diet and was advanced as tolerated . Patient was able to tolerate diet. Surgeon recommended outpatient follow-up with a primary care provider for surgical repair and elective cholecystectomy. Prior to discharge, as mentioned above, lipase, amylase, LFT were all within normal limits . Pain resolved. Patient clinically stabilized and was ready for discharge home. FINAL DIAGNOSES: Acute abdominal pain with nausea and emesis Cholelithiasis Acute cholecystitis Biliary pancreatitis Abdominal pain Alcohol dependency DISCHARGE MEDICATIONS: See Medication Reconciliation list. DISCHARGE INSTRUCTIONS: Patient was discharged home. Patient to follow-up with a primary care provider with a referral to surgeon as per insurance for elective cholecystectomy. I have been assigned to dictate discharge summary for this account. I was not involved in the patient's management. Cassandra Burleson NP May 04, 2020 15:54
--- NOTE | 2020-05-06 19:19 | Cardiology Report ---
APPROVED REPORT EKG Measurement Heart [id number] <Conclusion> Normal sinus rhythm Left axis deviation Moderate voltage criteria for LVH, may be normal variant Abnormal ECG
== END 2020-05-03 10:50 | disposition home or self-care (01) ==
LOC: EMR 23:15 → 4E 04-29 01:19 → EDBEDREQ 04-29 04:30
DX: K80.00 Calculus of gallbladder with acute cholecystitis without obstruction (principal); F10.20 Alcohol dependence, uncomplicated; K85.10 Biliary acute pancreatitis without necrosis or infection
CPT/HCPCS: 36415; 74181; 76700; 80053; 80061; 81003; 82150; 82248; 83036; 83690; 83880; 84443; 85025; 85610; 85730; 87040; 87181; 93005; 96361; 96365; 96375; 99285; J2405; J7030